=== PATIENT | male | born 1995 | race Caucasian/White ===

== ENCOUNTER 2023-06-22 16:20 | Emergency (ER) | payer SELFPAY ==
--- NOTE | ~2023-06-22 | CT_ITS ---
Non-contrast Head CT History: Head injury Technique: Axial non-contrast imaging of the brain was performed. Dose reduction technique was used on this scan by utilizing automated exposure control and iterative reconstruction technique. The dose -length product (DLP) was 605.33 mGy-cm. Findings: There is no evidence of intracranial hemorrhage, mass lesion, or acute infarct. Brain par enchyma appears normal. The ventricles and subarachnoid spaces are normal in size. The calvarium ap pears normal. The visualized paranasal sinuses and mastoid air cells are clear. Impression: No significant abnormality seen. Reviewed, dictated and finalized at location . Impression: No significant abnormality seen.
[2023-06-22 16:21] VITALS: BP 118/91; PULSE 95; RESP 18; TEMP 36.3; O2SAT 100
--- NOTE | 2023-06-22 17:57 | ED.HEATRA ---
HPI - Head Injury General Chief complaint: Head Injury Stated complaint: hit head 06/20/23 lost consciousness Time Seen by Provider: 06/22/23 17:25 Source: patient Mode of arrival: ambulatory Limitations: no limitations History of Present Illness HPI Narrative: Patient is a 28 y/o male who presents to the ED with c/o HI. 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 He landed initially on his R shoulder and R sided neck, but states his head slammed on the mat. He did lose consciousness for a brief second. He was taken to the locker rooms afterwards. Patient then developed nausea and vomiting. He noted having several episodes of emesis throughout the night. He rested for most of the day Thursday, but reported having intermittent headaches and continued nausea. Today, patient attempted to go back to work and reported having dizziness, right ear tinnitus, headaches. He then prompted here. Patient denies any vision changes, syncope, focal numbness or weakness, abdominal pain. He does not complain of significant neck or shoulder pain. Patient is not on any blood thinners. He has not taken anything for pain. Related Data Allergies Allergy/AdvReac Type Severity Reaction Status Date / Time No Known Allergies Allergy Verified 06/06/19 12:22 Review of Systems Review of Systems: CONSTITUTIONAL: Denies fever, chills, or sweats. EENT: See HPI. Denies visual changes. CARDIOVASCULAR: Denies chest pain. RESPIRATORY: Denies dyspnea. GASTROINTESTINAL: See HPI. MUSCULOSKELETAL: See HPI. NEUROLOGIC: See HPI. All systems reviewed & are unremarkable except as noted in HPI and below [facility] Social History Social History Smoking status: Never smoker Alcohol intake: never Exam Narrative: GENERAL: Well appearing, thin, non-toxic, in no acute distress. HEAD: Normocephalic, atraumatic. EYES: PERRL/EOMI, conjunctivae clear bilaterally. No nystagmus. No periorbital edema. No raccoon eyes. NOSE: Normal, no drainage. EARS: TMS clear, with good light reflex. No erythema or bulging. No hemotympanum. No castañeda sign. NECK: Supple. No adenopathy, no masses. No midline cervical spinal tenderness. Minimal right-sided paraspinal muscle tenderness, extending into upper trapezius region. RESPIRATORY: Airway patent, respirations nonlabored. Clear to auscultation bilaterally, no rales, rhonchi, wheezing. CARDIOVASCULAR: Regular rate and rhythm without murmurs, rubs, or gallops. Radial pulses 2+ and equal bilaterally. MUSCULOSKELETAL: Moves all extremities. Strength/ROM intact without gross deformities. SKIN: Warm, dry, normal color. No rashes. NEURO: A&O X3. Speech clear. Follows commands. CN II-XII intact. Sensation grossly intact. Steady gait. No ataxic movements. Strength 5/5 in upper and lower extremities bilaterally. Equal dobby loom fixer strength bilaterally. No focal deficits. PSYCHIATRIC: Appropriate mood and affect. Normal interaction. Course Vital Signs Vital signs: Vital Signs Temperature 97.4 F L 06/22/23 16:21 Pulse Rate 95 06/22/23 16:21 Respiratory Rate 18 06/22/23 16:21 Blood Pressure 118/91 H 06/22/23 16:21 Pulse Oximetry 100 06/22/23 16:21 Oxygen Delivery Room Air 06/22/23 16:21 Temperature 97.4 F L 06/22/23 16:21 Pulse Rate 95 06/22/23 16:21 Respiratory Rate 18 06/22/23 16:21 Blood Pressure 118/91 H 06/22/23 16:21 Pulse Oximetry 100 06/22/23 16:21 Oxygen Delivery Room Air 06/22/23 16:21 MDM - Head Injury MDM Narrative Medical decision making narrative: Patient presented to ED 2 days status post head injury while performing in a wrestling match. Reporting symptoms consistent with a concussion, nausea, vomiting, dizziness, headaches, tinnitus. Vital stable upon arrival. Patient in no acute distress. He had not taken anything
[2023-06-22] MEDS: ACETAMINOPHEN 500 MG TABLET 1000 MG PO (18:29)
[2023-06-22 19:43] VITALS: BP 114/75; PULSE 84; RESP 16; O2SAT 100
== END 2023-06-22 19:44 | disposition home or self-care (01) ==
PROVIDERS: Emergency Provider Physician Assistant
DX: S06.0X1A Concussion with loss of consciousness of 30 minutes or less, initial encounter (principal); W21.89XA Striking against or struck by other sports equipment, initial encounter; Y93.72 Activity, wrestling
CPT/HCPCS: 70450; 99284; A9270

== ENCOUNTER 2025-01-22 16:39 | Emergency (ER) | payer OTHER, SELFPAY ==
[2025-01-22] VITALS (9 sets, daily range): BP systolic 116–126; BP diastolic 71–88; PULSE 86–116; RESP 16–20; TEMP 36.5–36.6; O2SAT 97–100
--- NOTE | ~2025-01-22 | CT_ITS ---
CLINICAL INDICATION: Abdominal pain and vomiting COMPARISON: None. TECHNIQUE: Multiple contiguous axial images of the abdomen and pelvis were performed following the ad ministration of with 100 mL Omnipaque-350 intravenous contrast The dose-length product (DLP) was 222.85 mGy-cm. Automated exposure control and iterative reconstruction technique were employed. FINDINGS/OBSERVATIONS: Visualized lower thorax: The bilateral lung bases are clear. The heart is of normal size, without pericardial effusion. Liver: Fatty infiltration of the liver which is not enlarged. Gallbladder and biliary system: The gallbladder is only minimally distended, and otherwise unremarkable. Pancreas: The pancreas enhances homogeneously without ductal dilatation. Spleen: The spleen enhances homogeneously and is not enlarged measuring 6 cm in longitudinal dimension. Kidneys: The bilateral kidneys enhance symmetrically without hydronephrosis or renal calculi. Adrenal glands: Unremarkable. Gastrointestinal tract: Trace fecal stasis. Appendix: The air-filled appendix is of normal caliber (axial series, images 132 through 146) Vasculature: Unremarkable. Lymph nodes: No pathologically enlarged or morphologically suspicious lymph nodes within the retroperitoneum or at the root of the mesentery. Pelvic structures: The bladder is minimally distended, with mural thickening and surrounding inflammatory change for whi ch cystitis is suspected. The prostate gland is not enlarged. Body wall and musculoskeletal: No significant degenerative disease within the lower thoracic or lumbosacral spine. IMPRESSION: Findings within the bladder for which cystitis is suspected. No additional acute abnormality is appreciated, as detailed above Reviewed, dictated and finalized at location A. R INSTALLATION HELPER
--- OUTSIDE RECORDS SUMMARY | 2025-01-22 16:41 | XMS_ITS | Referral Summary ---
Author Organization [facility] [employer] Address [address] [place] [address] Care Team Providers Care Roofer Helper Name Role Phone Unavailable Primary Care Provider Unavailabl e Source Comments [facility],non-owned Affiliates and Associated Physician Practices is amultiple site organization consisting of ambulatory clinics and hospital sitesin [place], [place], [place] and [place]. This disclosure is being madepursuant to the Care Everywhere program and may not contain all information available regarding this patient. Last updated 18.[facility] [employer] Allergies No known active allergies Medications * Be aware that medications may not be up to date on this document. Alwaysverify current medications with the patient. Medication Sig Dispensed Refills Start Date End Date Status PEDIATRIC MULTIPLE VITAMINS PO Take 1 Tab by mouth once daily. Active mometasone (ELOCON) 0.1 % ointment Apply to affected area twice a day as needed for up to 2 weeks. Avoid face, underarms, and groin region. 15 g 1 07/24/2011 Active Active Problems Problem Noted Date Diagnosed Date Nonspecific skin eruption 07/25/2011 Overview (07/25/2011): acute onset late May 2011, partially recurrent following a prednisone taper. Consider a primary viral eruption complicated by erythema multiforme vs. contact dermatitis. Aphthous stomatitis 07/25/2011 Overview (07/25/2011): onset age 10-11 with monthly lesions. Social History Tobacco Use Types Packs/Day Years Used Date Smoking Tobacco: Never Assessed Sex and Gender Information Value Date Recorded Sex Assigned at Not on file Gender Identity Not on file Sexual Orientation Not on file Last Filed Vital Signs Vital Sign Reading Time Taken Comments Blood Pressure 100/62 07/24/2011 2:00 PM CDT Pulse - - Temperature - - Respiratory Rate - - Oxygen Saturation - - Inhaled Oxygen Concentration - - Weight 55.6 kg (122 lb 9.2 oz) 07/24/2011 2:00 P M CDT Height 171.4 cm (5' 7.48 ) 07/24/2011 2:00 PM CD T Body Mass Index 18.93 07/24/2011 2:00 PM CDT Plan of Treatment Not on file
--- OUTSIDE RECORDS SUMMARY | 2025-01-22 16:41 | XMS_ITS | Clinical Summary ---
Author Organization [facility] [employer] Address [address] [place] [address] Care Team Providers Care Technical Support Director Name Role Phone Unavailable Primary Care Provider Unavailabl e Source Comments [facility],non-owned Affiliates and Associated Physician Practices is amultiple site organization consisting of ambulatory clinics and hospital sitesin [place], [place], [place] and [place]. This disclosure is being madepursuant to the Care Everywhere program and may not contain all information available regarding this patient. Last updated 18.[facility] [employer] Allergies No known active allergies Medications * [...] (07/25/2011): onset age 10-11 with monthly lesions. Family History Medical History Relation Name Comments Cold Sores Father suicide Sinusitis Maternal Grandfather Cancer Maternal Grandmother breast Cold Sores Maternal Grandmother breast Diabetes Maternal Grandmother breast Clotting Disorder Mother Eczema Mother Sinusitis Mother Strep throat Mother Relation Name Status Comments Father suicide Maternal Grandfather Maternal Grandmother breast Mother Social History Tobacco Use Types Packs/Day Years [...] 07/24/2011 2:00 PM CDT Plan of Treatment Health Maintenance Due Date Last Done Comments HIV SCREENING 2011 HEPATITIS C SCREENING 03/12/2014 DTAP/TDAP/TD VACCINES (1 - Tdap) 2015 HEPATITIS B VACCINE (1 of 3 - 19+ 3-dose series) 2015 COVID-19 VACCINE (2023-2 5 season) 2024 INFLUENZA VACCINE (#1) 2024 DEPRESSION SCREENING 11/30/2024 ZOSTER VACCINE (1 of 2) 2046 HIB VACCINE Aged Out No longer eligi ble based on patient's age to complete this topic HPV VACCINE Aged Out No longer eligi ble based on patient's age to complete this topic MENINGOCOCCAL (Group B) VACCINE Aged Out No longer eligible based on patient's age to complete this topic MENINGOCOCCAL VACCINE Aged Out No matthew mayuri eligible based on patient's age to complete this topic PNEUMOCOCCAL VACCINE Aged Out No long er eligible based on patient's age to complete this topic
--- OUTSIDE RECORDS SUMMARY | 2025-01-22 16:41 | XMS_ITS | Patient Health Summary ---
Author Organization [facility] [employer] Address [address] [place] [address] Care Team Providers Care Food Operations Manager Name Role Phone Unavailable Primary Care Provider Unavailabl e Note from [facility],non-owned Affiliates and Associated Physician Practices is amultiple site organization consisting of ambulatory clinics and hospital sitesin [place], [place], [place] and [place]. This disclosure is being madepursuant to the Care Everywhere program and may not contain all information available regarding this patient. Last updated 18.[facility] Allergies No known active allergies Medications * Be aware that medications may not be up to date on this document. Alwaysverify current medications with the patient. * PEDIATRIC MULTIPLE VITAMINS PO Take 1 Tab by mouth once daily. * mometasone (ELOCON) 0.1 % ointment(Started 07/24/2011) Apply to affected area twice a day as needed for up to 2 weeks. Avoid face, underarms, and groin region. 1 refill left Active Problems Problem Noted Date Diagnosed Date Nonspecific skin eruption 07/25/2011 Aphthous stomatitis 07/25/2011 Social History Tobacco Use Types Packs/Day Years [...]
[2025-01-22] MEDS: SODIUM CHLORIDE 0.9% IV 1,000 ML 999 ML IV CONT (19:32)
--- OUTSIDE RECORDS SUMMARY | 2025-01-22 19:41 | XMS_ITS | Patient Health Summary ---
Author Organization [facility] [employer] Address [address] [place] [address] Care Team Providers Care Force Variation Equipment Tender Name Role Phone Unavailable Primary Care Provider Unavailabl e Note from [facility],non-owned Affiliates and Associated Physician Practices is amultiple site organization consisting of ambulatory clinics and hospital sitesin [place], [place], [place] and [place]. This disclosure is being madepursuant to the Care Everywhere program and may not contain all information available regarding this patient. Last updated 18.[facility] [employer] Allergies No known active allergies Medications * [...]
--- OUTSIDE RECORDS SUMMARY | 2025-01-22 19:41 | XMS_ITS | Referral Summary ---
Author Organization [facility] [employer] Address [address] [place] [address] Care Team Providers Care Supervisor White Sugar Name Role Phone Unavailable Primary Care Provider Unavailabl e Source Comments [facility],non-owned Affiliates and Associated Physician Practices is amultiple site organization consisting of ambulatory clinics and hospital sitesin [place], [place], [place] and [place]. This disclosure is being madepursuant to the Care Everywhere program and may not contain all information available regarding this patient. Last updated 18.[facility] [employer] Allergies No known active allergies Medications * [...]
--- OUTSIDE RECORDS SUMMARY | 2025-01-22 19:41 | XMS_ITS | Clinical Summary ---
Author Organization [facility] [employer] Address [address] [place] [address] Care Team Providers Care Interior Assemblies Developer Prover Name Role Phone Unavailable Primary Care Provider Unavailabl e Source Comments [facility],non-owned Affiliates and Associated Physician Practices is amultiple site organization consisting of ambulatory clinics and hospital sitesin [place], [place], [place] and [place]. This disclosure is being madepursuant to the Care Everywhere program and may not contain all information available regarding this patient. Last updated 18.[facility] [employer] Allergies No known active allergies Medications * [...]
[2025-01-22 19:46] LABS: Basophils Absolute Auto 0.1 K/mm3 (0.0-0.1); Basophils Percent Auto 0.3 % (0.2-1.2); Hematocrit 51.7 % (42.0-52.0); Hemoglobin 19.1 g/dL (14.0-18.0); Immature Granulocyte Absolute 0.08 K/mm3 (0.00-0.031); Immature Granulocyte Percent A 0.6 % (0-0.5); Lymphocytes Absolute Auto 0.82 K/mm3 (0.9-3.2); Lymphocytes Percent Auto 5.7 % (18.3-44.2); Mean Corpuscular HGB Conc 36.9 g/dl (32-36); Mean Corpuscular Hemoglobin 34.2 pg (26-34); Mean Corpuscular Volume 92.7 fl (80-100); Mean Platelet Volume 10.8 fl (7.4-10.4); Monocytes Absolute Auto 1.6 K/mm3 (0.1-0.6); Monocytes Percent Auto 10.8 % (2.6-8.5); Neutrophils Absolute Auto 11.9 K/mm3 (1.3-6.7); Neutrophils Percent Auto 82.6 % (45.5-73.1); Platelet Count Result 204 k/mm3 (150-375); Red Blood Count 5.58 M/mm3 (4.6-6.20); Red Cell Distribution Width 11.8 % (11.5-14.5); White Blood Count 14.4 K/mm3 (4.5-10.0)
--- NOTE | 2025-01-22 19:50 | ED.NAVMDI ---
HPI - Nausea/Vomiting/Diarrhea General Chief complaint: Nausea/Vomiting/Diarrhea Stated complaint: n/v Time Seen by Provider: 01/22/25 19:22 Source: patient Mode of arrival: EMS Limitations: no limitations History of Present Illness HPI Narrative: This is a 29 year old male that presents to the ER for nausea, vomiting, epigastric pain. Ongoing over the last couple of days. Denies fevers. Related Data Allergies Allergy/AdvReac Type Severity Reaction Status Date / Time No Known Allergies Allergy Verified 01/22/25 19:43 Review of Systems Review of Systems: CONSTITUTIONAL: Denies fever GASTROINTESTINAL: Reports abdominal pain, nausea, vomiting All systems reviewed & are unremarkable except as noted in HPI and below [facility] Social History Social History (Updated 01/22/25 @ 19:50 by Jazlyn Canales PA-C) Smoking status: Current every day smoker Tobacco type: e-cigarettes/vaping Alcohol intake: current Substance use: current Substance use type: marijuana Exam Narrative: GENERAL: Well-appearing, well-nourished, and in no acute distress. HEAD: Normocephalic, atraumatic. EYES: EOMI. CHEST: Clear to auscultation. No respiratory distress. No wheezes rales or rhonchi HEART: Regular rate and rhythm. No murmur heard. Normal peripheral pulses. ABDOMEN: Soft, nondistended, normal active bowel sounds. Tender to palpation in the epigastrium, without guarding EXTREMITIES: Normal range of motion. No edema. SKIN: Warm, dry, no rash. NEURO: No focal deficits. Alert and oriented x3. PSYCH: Normal mood and affect Course Course Emergency Course: keyonna was updated on his workup and agrees with plan of care. He reports feeling much better. Tolerating oral intake. Vital Signs Vital signs: Vital Signs Temperature 97.9 F 01/22/25 17:05 Pulse Rate 108 H 01/22/25 17:05 Respiratory Rate 16 01/22/25 17:05 Blood Pressure 116/80 01/22/25 17:05 Pulse Oximetry 100 01/22/25 17:05 Oxygen Delivery Room Air 01/22/25 17:05 Temperature 97.9 F 01/22/25 23:22 Pulse Rate 94 01/22/25 23:22 Respiratory Rate 18 01/22/25 23:22 Blood Pressure 118/71 01/22/25 23:22 Pulse Oximetry 97 01/22/25 23:22 Oxygen Delivery Room Air 01/22/25 17:05 MDM - Nausea/Vomiting/Diarrhea MDM Narrative Medical decision making narrative: Patient presents to the emergency department for epigastric abdominal discomfort, nausea and vomiting. Tachycardic upon arrival, this normalized with IV fluids. CBC with leukocytosis to 14.4. Likely due to vomiting. Also shows some hemoconcentration. Metabolic panel initially with multiple electrolyte derangements. This was repeated with normalization of his potassium and calcium. He does have elevation in his liver enzymes. Likely due to his alcohol use. Urine with 6-10 white blood cells, patient does not have any urinary symptoms. This will be sent for culture. CT abdomen and pelvis shows findings of possible cystitis. Otherwise no acute findings. Patient was updated on his workup and agrees with plan of care. He reports feeling much better. Tolerating oral intake. Will be started on Protonix. He is to follow up with primary provider. He was given warnings to return to the ER Differential Diagnosis Differential diagnosis: Likely food poisoning, gastroenteritis, dehydration and other (alcoholic gastritis, PUD, biliary colic) Lab Data Attestation: I reviewed the patient's lab results. 01/22/25 19:33 01/22/25 23:20 Labs: Lab Results 01/22/25 01/22/25 01/22/25 Range/Units 19:33 20:02 21:33 WBC 14.4 H (4.5-10.0) K/mm3 RBC 5.58 (4.6-6.20) M/mm3 Hgb 19.1 H (14.0-18.0) g/dL Hct 51.7 (42.0-52.0) % MCV 92.7 (80-100) fl MCH 34.2 H (26-34) pg MCHC 36.9 H (32-36) g/dl RDW 11.8 (11.5-14.5) % Plt Count 204 (150-375) k/mm3 MPV 10.8 H (7.4-10.4) fl Immature Gran % (Auto) 0.6 H (0-0.5) % Neut % (Auto) 82.6 H (45.5-73.1) % Lymph % (Auto) 5.7 L (18.3-44.2) % [place] % (Auto) 10.8 H (2.6-8.5) % Eos % (Auto) 0.0 (0-4.4) % Baso % (Auto) 0.3 (0.2-1.2) % Lymph # (Auto) 0.82 L (0.9-3.2) K/mm3 [place] # (Auto) 1.6 H (0.1-0.6) K/mm3 Eos # (Auto) 0.0 (0-0.3) K/mm3 Baso # (Auto) 0.1 (0.0-0.1) K/mm3 Abs Immat Gran (auto) 0.08 H (0.00-0.031) K/mm3 Absolute Neuts (auto) 11.9 H (1.3-6.7) K/mm3 Absolute Nucleated RBC 0.000 (0.0-0.012) K/mm3 Nucleated RBC % 0.0 (0.0-0.2) % Sodium 133 L (137-145) mmol/L Potassium 2.2 L* (3.4-5.0) mmol/L Chloride 105 (98-107) mmol/L Carbon Dioxide 17 L (22-30) mmol/L Anion Gap 11 (4-12) mmol/L BUN 25 H (9-20) mg/dL Creatinine 0.40 L (0.7-1.3) mg/dL Estim Creat Clear Calc 172 ml/min Estimated GFR > 60 (59 - ) Glucose 73 (65-110) mg/dL Calcium 5.8 L* (8.4-10.2) mg/dL Ionized Calcium Jen Pending Magnesium 1.0 L (1.6-2.3) mg/dL Total Bilirubin 1.3 (0.2-1.3) mg/dL AST 53 (17-59) U/L ALT 43 (6-50) U/L Alkaline Phosphatase 68 (38-126) U/L Total Protein 5.0 L (6.3-8.2) g/dL Albumin 2.8 L (3.5-5.1) g/dL Lipase 44 (23-300) U/L PTH Intact 45.5 (14.5-75.2) pg/mL Urine Color Dark yellow (Yellow) Urine Appearance Cloudy H (Clear) Urine pH 5.5 (5.0-9.0) Ur Specific [place] 1.032 (1.001-1.035) Urine Protein 1+ H (Negative) mg/dL Urine Glucose (UA) Negative (Negative) mg/dL Urine Ketones 3+ H (Negative) mg/dL Ur Blood (Man) Negative (Negative) Urine Nitrate Negative (Negative) Urine Bilirubin 2+ H (Negative) Urine Urobilinogen 2.0 H (<2.0) mg/dL Leukocyte Esterase Rfl Trace H (Negative) SYEDA/UL Urine RBC 0-2 (0-2) /hpf Urine WBC 6-10 H (0-3) /hpf Ur Squamous Epith Cells None seen (Few) /hpf Urine Bacteria None seen /hpf Urine Casts 0-2 01/22/25 Range/Units 23:20 WBC (4.5-10.0) K/mm3 RBC (4.6-6.20) M/mm3 Hgb (14.0-18.0) g/dL Hct (42.0-52.0) % MCV (80-100) fl MCH (26-34) pg MCHC (32-36) g/dl RDW (11.5-14.5) % Plt Count (150-375) k/mm3 MPV (7.4-10.4) fl Immature Gran % (Auto) (0-0.5) % Neut % (Auto) (45.5-73.1) % Lymph % (Auto) (18.3-44.2) % [place] % (Auto) (2.6-8.5) % Eos % (Auto) (0-4.4) % Baso % (Auto) (0.2-1.2) % Lymph # (Auto) (0.9-3.2) K/mm3 [place] # (Auto) (0.1-0.6) K/mm3 Eos # (Auto) (0-0.3) K/mm3 Baso # (Auto) (0.0-0.1) K/mm3 Abs Immat Gran (auto) (0.00-0.031) K/mm3 Absolute Neuts (auto) (1.3-6.7) K/mm3 Absolute Nucleated RBC (0.0-0.012) K/mm3 Nucleated RBC % (0.0-0.2) % Sodium 129 L (137-145) mmol/L Potassium 5.0 (3.4-5.0) mmol/L Chloride 87 L (98-107) mmol/L Carbon Dioxide 29 (22-30) mmol/L Anion Gap 13 H (4-12) mmol/L BUN 30 H (9-20) mg/dL Creatinine 0.66 L (0.7-1.3) mg/dL Estim Creat Clear Calc 110 ml/min Estimated GFR > 60 (59 - ) Glucose 95 (65-110) mg/dL Calcium 8.9 (8.4-10.2) mg/dL Ionized Calcium Jen Magnesium (1.6-2.3) mg/dL Total Bilirubin 1.8 H (0.2-1.3) mg/dL AST 77 H (17-59) U/L ALT 66 H (6-50) U/L Alkaline Phosphatase 106 (38-126) U/L Total Protein 8.0 (6.3-8.2) g/dL Albumin 4.4 (3.5-5.1) g/dL Lipase (23-300) U/L PTH Intact (14.5-75.2) pg/mL Urine Color (Yellow) Urine Appearance (Clear) Urine pH (5.0-9.0) Ur Specific [place] (1.001-1.035) Urine Protein (Negative) mg/dL Urine Glucose (UA) (Negative) mg/dL Urine Ketones (Negative) mg/dL Ur Blood (Man) (Negative) Urine Nitrate (Negative) Urine Bilirubin (Negative) Urine Urobilinogen (<2.0) mg/dL Leukocyte Esterase Rfl (Negative) SYEDA/UL Urine RBC (0-2) /hpf Urine WBC (0-3) /hpf Ur Squamous Epith Cells (Few) /hpf Urine Bacteria /hpf Urine Casts Imaging Data Radiologist's impression: ITS Impressions Abdomen/Pelvis CT 01/22/25 21:43 IMPRESSION: Findings within the bladder for which cystitis is suspected. No additional acute abnormality is appreciated, as detailed above Critical Care Time Critical Care Time Critical Care Time: No Discharge Plan Discharge Clinical Impression: Dehydration Gastritis Qualifiers: Gastritis type: alcoholic Chronicity: acute Gastritis bleeding: without bleeding Qualified Code(s): K29.20 - Alcoholic gastritis without bleeding Patient Disposition: Home, Self-Care Condition: Improved Instructions: Gastritis (ED), Dehydration (ED) Additional Instructions: Return to the ER if you experience fever, abdominal pain with nausea and vomiting, you are unable to keep down liquids or solids, blood in the stool, pain or burning with urination, blood in the urine or any other symptoms that are concerning to you Remain well hydrated. Take Protonix daily. Avoid spicy/acidic foods. Avoid eating just before bedtime. Avoid alcohol. Avoid anti-inflammatories Follow up with primary care doctor Patient Language: Icelandic Prescriptions: New pantoprazole 20 mg tablet,delayed release (DR/EC) 20 mg PO HS 28 Days Qty: 28 0RF Follow-up/Referrals: PHYSICIAN,TOBACCO SIEVE OPERATOR [Primary Care Provider] - Christian Polanco MD [Physician] -
[2025-01-22] MEDS: ONDANSETRON INJ 4 MG/2 ML VIAL IV PUSH (20:00)
[2025-01-22] MEDS: PANTOPRAZOLE SODIUM IV 40 MG VIAL IV PUSH (20:02)
[2025-01-22 20:10] LABS: Alanine Aminotransferase 43 U/L (6-50); Albumin Level 2.8 g/dL (3.5-5.1); Alkaline Phosphatase 68 U/L (38-126); Anion Gap 11 mmol/L (4-12); Aspartate Amino Transferase 53 U/L (17-59); Bilirubin,Total 1.3 mg/dL (0.2-1.3); Blood Urea Nitrogen 25 mg/dL (9-20); Calcium 5.8 mg/dL (8.4-10.2); Carbon Dioxide 17 mmol/L (22-30); Chloride 105 mmol/L (98-107); Estimated CRCL calculation 172 ml/min; Estimated Glomerular Filt Rate > 60; Glucose 73 mg/dL (65-110); Lipase 44 U/L (23-300); Potassium 2.2 mmol/L (3.4-5.0); Sodium 133 mmol/L (137-145)
--- NOTE | 2025-01-22 20:14 | ECG_ITS ---
Test Date: 2025-01-22 20:31:16 Measurements Intervals [place] Rate: 98 P: 88 NE: 135 QRS: 99 QRSD: 106 T: 63 QT: 361 QTc: 462 Interpretive Statements SINUS RHYTHM CONSIDER LIMB LEAD REVERSAL RIGHT ATRIAL ENLARGEMENT LEFT ATRIAL ENLARGEMENT MINIMAL Q WAVES- INF/LAT LEADS BASELINE ARTIFACT- I, II, III, AVR, AVL,A VF, V1-V6 BORDERLINE ECG No previous ECG available for comparison Electronically Signed On 01-23-2025 06:37:28 PUBLIC AFFAIRS MANAGER by Tan Luna D.O.
[2025-01-22 20:18] LABS: Add Urine Microscopic? YES; Appearance Urine Cloudy (Clear); Bacteria Urine None Seen /hpf; Bilirubin Urine 2+ (Negative); Blood Urine Negative (Negative); Color Urine Dark Yellow (Yellow); Glucose Urine UA Negative (Negative); Ketones Urine 3+ mg/dL (Negative); Leukocyte Esterase Ur Trace LEU/UL (Negative); Nitrate Urine Negative (Negative); Non Pathogenic Casts 0-2; Protein Urine 1+ mg/dL (Negative); RBC Urine 0-2 /hpf (0-2); Specific Grav Ur 1.032 (1.001-1.035); Squamous Epithelial Cell Urine None Seen /hpf (Few); pH Urine 5.5 (5.0-9.0)
[2025-01-22] MEDS: MAGNESIUM SULF 2 GM/WATER 50ML 2 GM/50 ML BAG IVPB (20:43)
[2025-01-22 21:15] LABS: Parathyroid Intact 45.5 pg/mL (14.5-75.2)
[2025-01-22] MEDS: POTASSIUM CHLORIDE INJ 40 MEQ in SODIUM CHLORIDE 0.9% IV 500 ML 130 MEQ IVPB (21:32)
[2025-01-22] MEDS: POTASSIUM CHLORIDE 20 MEQ ER TABLET 40 MEQ PO (22:42)
[2025-01-22 23:41] LABS: Alanine Aminotransferase 66 U/L (6-50); Albumin Level 4.4 g/dL (3.5-5.1); Alkaline Phosphatase 106 U/L (38-126); Anion Gap 13 mmol/L (4-12); Aspartate Amino Transferase 77 U/L (17-59); Bilirubin,Total 1.8 mg/dL (0.2-1.3); Blood Urea Nitrogen 30 mg/dL (9-20); Calcium 8.9 mg/dL (8.4-10.2); Carbon Dioxide 29 mmol/L (22-30); Chloride 87 mmol/L (98-107); Estimated CRCL calculation 110 ml/min; Estimated Glomerular Filt Rate > 60; Glucose 95 mg/dL (65-110); Sodium 129 mmol/L (137-145)
--- NOTE | 2025-01-23 00:15 | PC.NURSE ---
Per EDP CELY Mcintosh. stop potassium infusion as new Potassium level is 5.0
[2025-01-24 12:34] LABS: Ionized Calcium 4.8 mg/dL (4.7-5.5)
== END 2025-01-23 01:00 | disposition home or self-care (01) ==
PROVIDERS: Student in an Organized Health Care Education/Training Program; Emergency Provider Physician Assistant
DX: E86.0 Dehydration (principal); K29.20 Alcoholic gastritis without bleeding; F17.290 Nicotine dependence, other tobacco product, uncomplicated
CPT/HCPCS: 36415; 74177; 80053; 81001; 82330; 83690; 83735; 83970; 85025; 87086; 93005; 96361; 96365; 96366; 96368; 96375; 99284; A9270; J2405; J2470; J3475; J3480; J7030; J7040; Q9967

== ENCOUNTER 2025-07-05 21:18 | Observation (INO) | payer SELFPAY ==
--- NOTE | ~2025-07-05 | CT_ITS ---
CT of the Abdomen and Pelvis: Indication: Pancreatitis Technique: 2.5 mm axial scans were obtained through the abdomen and pelvis following intravenous adm inistration of 100 cc of Omnipaque 350. Dose reduction technique was used on this scan by utilizing a utomated exposure control and iterative reconstruction technique. The dose-length product (DLP) was 2 08.02 mGy-cm. COMPARISON: 01/22/2025 Findings: Scans through the lung bases are unremarkable. There is diffuse hepatic steatosis. The spleen, pancreas, gallbladder, adrenals and kidneys are withi n normal limits. No evidence of aortic aneurysm. No lymphadenopathy. No bowel obstruction or bowel wall thickening. There is no evidence to suggest acute appendicitis. Images through the pelvis were performed. Urinary bladder unremarkable. No pelvic mass seen. No ascit es. Impression: No acute abnormality. Diffuse hepatic steatosis. Reviewed, dictated and finalized at [facility]. Impression: No acute abnormality. Diffuse hepatic steatosis.
--- NOTE | ~2025-07-05 | US_ITS ---
US abdomen limited INDICATION: Pancreatitis PROCEDURE: Realtime right upper abdominal ultrasound. COMPARISON: No prior studies for comparison. FINDINGS: The pancreas is normal without focal mass or pancreatic ductal dilation. Liver echotexture is increased consistent with fatty infiltration. Liver is enlarged measuring 18 cm. There is normal directional flow in the portal vein. The gallbladder is normal without stones, gallbladder wall thickening or pericholecystic fluid. Comm on bile duct measures 4.5 mm. No sonographic Sanchez's sign. IMPRESSION: 1: Fatty infiltration of the liver with hepatomegaly. Reviewed, dictated and finalized at location A.
[2025-07-05 21:31] VITALS: BP 113/79; PULSE 146; RESP 18; TEMP 36.4; O2SAT 100
--- NOTE | 2025-07-05 21:33 | ECG_ITS ---
Test Date: 2025-07-05 21:41:03 Measurements Intervals Berry Rate: 129 P: 93 OK: 124 QRS: 103 QRSD: 101 T: 48 QT: 306 QTc: 449 Interpretive Statements SINUS TACHYCARDIA CONSIDER ARM LEADS REVERSED INCOMPLETE RIGHT BUNDLE BRANCH BLOCK BORDERLINE R WAVE PROGRESSION, ANTERIOR LEADS MINIMAL Q WAVES- INF/LAT LEADS PEAKED T WAVES- CONSIDER HYPERKALEMIA ABNORMAL ECG Compared to ECG 01/22/2025 20:31:16 HEART RATE HAS INCREASED Electronically Signed On 07-06-2025 06:20:48 CDT by Tan Luna D.O.
[2025-07-05 21:54] LABS: Hematocrit 55.2 % (42.0-52.0); Hemoglobin 20.0 g/dL (14.0-18.0); Mean Corpuscular HGB Conc 36.2 g/dl (32-36); Mean Corpuscular Hemoglobin 35.0 pg (26-34); Mean Corpuscular Volume 96.5 fl (80-100); Platelet Count Result 286 k/mm3 (150-375); Red Blood Count 5.72 M/mm3 (4.6-6.20); White Blood Count 25.3 K/mm3 (4.5-10.0)
[2025-07-05 22:12] LABS: Alanine Aminotransferase 93 U/L (6-50); Albumin Level 5.2 g/dL (3.5-5.1); Alkaline Phosphatase 127 U/L (38-126); Anion Gap 24 mmol/L (4-12); Aspartate Amino Transferase 147 U/L (17-59); Bilirubin,Total 1.5 mg/dL (0.2-1.3); Blood Urea Nitrogen 49 mg/dL (9-20); Calcium 10.4 mg/dL (8.4-10.2); Carbon Dioxide 23 mmol/L (22-30); Chloride 80 mmol/L (98-107); Estimated CRCL calculation 64 ml/min; Estimated Glomerular Filt Rate > 60; Glucose 121 mg/dL (65-110); Lipase 1368 U/L (23-300); Magnesium 2.0 mg/dL (1.6-2.3); Potassium 3.9 mmol/L (3.4-5.0); Sodium 127 mmol/L (137-145); Total Protein 8.9 g/dL (6.3-8.2)
[2025-07-05 22:14] LABS: Band Neutrophils Percent 6 % (0-6); Lymphocytes Absolute Manual 0.25 K/mm3 (1.1-4.5); Lymphocytes Percent Manual 1.0 % (18-44); Monocytes Absolute Manual 0.25 K/mm3 (0.1-0.90); Monocytes Percent Manual 1 % (3-9); Neutrophils Absolute Manual 24.79 K/mm3 (1.3-6.7); Neutrophils Percent Manual 92 % (46-73); Total Cells Counted 100
[2025-07-05 22:15] LABS: Schistocytes None Seen
[2025-07-05] MEDS: ONDANSETRON INJ 4 MG/2 ML VIAL IV PUSH (22:28)
[2025-07-05] MEDS: HYDROmorphone HCL INJ (*CRX) 2 MG/ML VIAL 0.5 MG IV PUSH (22:44)
[2025-07-05] MEDS: SODIUM CHLORIDE 0.9% IV 1,000 ML 999 ML IV CONT (22:44)
[2025-07-05 23:15] VITALS: BP 138/91; PULSE 93; RESP 12; O2SAT 96
[2025-07-05 23:45] VITALS: BP 136/87; PULSE 91; RESP 16; O2SAT 98
[2025-07-06] VITALS (12 sets, daily range): BP systolic 125–151; BP diastolic 69–91; PULSE 65–98; RESP 14–18; TEMP 36.6–37; O2SAT 96–100; BMI 14.8
[2025-07-06 00:23] LABS: Add Urine Microscopic? YES; Appearance Urine Clear (Clear); Glucose Urine UA Negative (Negative); Leukocyte Esterase Ur Trace LEU/UL (Negative); Need Manual Microscopic Reviewed; Nitrate Urine Negative (Negative); Specific Grav Ur 1.029 (1.001-1.035)
--- NOTE | 2025-07-06 00:27 | ED_ITS ---
HPI - Nausea/Vomiting/Diarrhea General Chief complaint: Nausea/Vomiting/Diarrhea Stated complaint: vomiting Time Seen by Provider: 07/05/25 22:04 Source: patient and family Mode of arrival: ambulatory Limitations: no limitations History of Present Illness HPI Narrative: Patient presents with vomiting and epigastric abd pain 36 hours. No fevers. Previously diagnosed with acid reflux when something similar happened, medicine he had been prescribed for that didn't help. Nausea improved after receiving some medications. Drinks alcohol daily/near daily. Has been diagnosed with 1 seizure previously, not on anti seizure meds but notes he will become tremulous if he doesn't drink. Still has his gallbladder. No history of pancreatitis. Related Data Allergies Allergy/AdvReac Type Severity Reaction Status Date / Time No Known Allergies Allergy Verified 07/06/25 05:03 [facility] Family History Family History (Updated 07/06/25 @ 04:56 by Nicky Rao RN) Grandparent Diabetes mellitus Social History Social History Years smoked: 9 Smoking status: Current every day smoker Tobacco type: e-cigarettes/vaping Alcohol intake: current Drinks per week: 70 Substance use: current Substance use type: marijuana Last use: 06/29/2025 Lack of Transportation: No Lack of Food: Never True Current Housing: I Have Housing Concerned About Future Housing: No Difficulty Paying Gas/Electric Bills: No Difficulty Paying for Meds: No Currently Unemployed: No Education: High School Diploma/GED Difficulty w/ Childcare or Family Care: No Spiritual care concerns: No Exam 2 Narrative: GENERAL: Well-appearing, well-nourished, and in no acute distress. HEAD: Normocephalic, atraumatic. EYES: Non injected, non icteric ENT: Nares clear, no rhinorrhea or epistaxis. Gross auditory acuity intact. Tacky mucous membranes NECK: Supple. No meningismus. CHEST: Speaking in full sentences. No respiratory distress. HEART: Tachycardic rate and rhythm. . ABDOMEN: Soft, nondistended. No tenderness to palpation throughout . No rigidity or guarding. Not peritoneal EXTREMITIES: Normal range of motion. No lower extremity edema. SKIN: Warm, dry, no rash. NEURO: No focal deficits. Alert and oriented. Answering questions. Following commands. Normal speech without aphasia or dysarthria. tongue protrudes midline w/o deviation or toño fasciculations PSYCH: Normal mood and affect. Course Vital Signs Vital signs: Vital Signs Temperature 97.5 F L 07/05/25 21:31 Pulse Rate 146 H 07/05/25 21:31 Respiratory Rate 18 07/05/25 21:31 Blood Pressure 113/79 07/05/25 21:31 Pulse Oximetry 100 07/05/25 21:31 Oxygen Delivery Room Air 07/05/25 21:31 Temperature 98.1 F 07/07/25 05:28 Pulse Rate 76 07/07/25 12:00 Respiratory Rate 16 07/07/25 05:28 Blood Pressure 129/65 07/07/25 12:00 Pulse Oximetry 98 07/07/25 08:30 Oxygen Delivery Room Air 07/07/25 08:30 MDM - Nausea/Vomiting/Diarrhea MDM Narrative Medical decision making narrative: Patient presents with epigastric pain and vomiting, 36 hours duration. DDX: Pancreatitis, gastritis, peptic/gastric ulcer disease; GERD; biliary pathology; hepatitis In the emergency department he is afebrile with vital signs notable for marked tachycardia. Analgesia medication, antiemetic, and 1 L IV fluids ordered. Lipase is elevated consistent with pancreatitis. 2 L IV fluids ordered in addition to Reglan and famotidine. While patient's creatinine is technically within normal limits, it does represent a doubling of his previous consistent with an MIR. He has previously had azotemia, worsening today. He also has chronic hyponatremia. Calcium appears elevated but corrects to normal in the setting of elevated albumin. I suspect a degree contraction/hemoconcentration. Transaminitis is worse from previous. Marked leukocytosis. Urinalysis is abnormal but appears to be sterile pyuria with ketonuria which also supports his dehydration. Triglycerides are mildly elevated though not greater than a 1000. Discussed with on-call hospitalist SHAYAN Alexsander who advises patient be in IMU given acidosis. RUQ US has been ordered to be performed though suspect this to be alcohol induced as he drinks daily/near daily. Not currently withdrawing but CIWA protocol ordered given history. Lab Data Attestation: I reviewed the patient's lab results. 07/07/25 04:21 07/07/25 13:05 Labs: Lab Results 07/05/25 07/06/25 Range/Units 21:47 00:01 WBC 25.3 H (4.5-10.0) K/mm3 RBC 5.72 (4.6-6.20) M/mm3 Hgb 20.0 H (14.0-18.0) g/dL Hct 55.2 H (42.0-52.0) % MCV 96.5 (80-100) fl MCH 35.0 H (26-34) pg MCHC 36.2 H (32-36) g/dl RDW 12.5 (11.5-14.5) % Plt Count 286 (150-375) k/mm3 MPV 10.1 (7.4-10.4) fl Immature Gran % (Auto) Not Reportable Neut % (Auto) Not Reportable Lymph % (Auto) Not Reportable [place] % (Auto) Not Reportable Eos % (Auto) Not Reportable Baso % (Auto) Not Reportable Lymph # (Auto) Not Reportable [place] # (Auto) Not Reportable Eos # (Auto) Not Reportable Baso # (Auto) Not Reportable Abs Immat Gran (auto) Not Reportable Absolute Neuts (auto) Not Reportable Absolute Nucleated RBC Not Reportable Total Counted 100 Neutrophils % (Manual) 92 H (46-73) % Band Neutrophils % 6 (0-6) % Lymphocytes % (Manual) 1.0 L (18-44) % Monocytes % (Manual) 1 L (3-9) % Nucleated RBC % Not Reportable Abs Neuts (Manual) 24.79 H (1.3-6.7) K/mm3 Abs Lymphs (Manual) 0.25 L (1.1-4.5) K/mm3 Abs Monocytes (Manual) 0.25 (0.1-0.90) K/mm3 Platelet Estimate Adequate (Adequate) Schistocytes None seen Sodium 127 L (137-145) mmol/L Potassium 3.9 (3.4-5.0) mmol/L Chloride 80 L (98-107) mmol/L Carbon Dioxide 23 (22-30) mmol/L Anion Gap 24 H (4-12) mmol/L BUN 49 H D (9-20) mg/dL Creatinine 1.15 (0.7-1.3) mg/dL Estim Creat Clear Calc 64 ml/min Estimated GFR > 60 (59 - ) Glucose 121 H (65-110) mg/dL Calcium 10.4 H (8.4-10.2) mg/dL Magnesium 2.0 (1.6-2.3) mg/dL Total Bilirubin 1.5 H (0.2-1.3) mg/dL AST 147 H (17-59) U/L ALT 93 H (6-50) U/L Alkaline Phosphatase 127 H (38-126) U/L Total Protein 8.9 H (6.3-8.2) g/dL Albumin 5.2 H (3.5-5.1) g/dL Triglycerides 300 H (<150) mg/dL Lipase 1368 H (23-300) U/L Urine Color Dark yellow (Yellow) Urine Appearance Clear (Clear) Urine pH 6.0 (5.0-9.0) Ur Specific [place] 1.029 (1.001-1.035) Urine Protein 2+ H (Negative) mg/dL Urine Glucose (UA) Negative (Negative) mg/dL Urine Ketones 3+ H (Negative) mg/dL Ur Blood (Man) Negative (Negative) Urine Nitrate Negative (Negative) Urine Bilirubin 2+ H (Negative) Urine Urobilinogen 1.0 (<2.0) mg/dL Add Ur Microanalysis Reviewed Leukocyte Esterase Rfl Trace H (Negative) SYEDA/UL Urine RBC 3-5 H (0-2) /hpf Urine WBC 6-10 H (0-3) /hpf Ur Squamous Epith Cells Occasional (Few) /hpf Urine Bacteria None seen /hpf Urine Casts 11-20 Hyaline Casts Present (None) /lpf Imaging Data Radiologist's impression: CT Abd Pelvis w/ contrast STat Rad: Question minimal inflammatory stranding surrounding the tail of the pancreas which could be seen with pancreatitis in the appropriate clinical setting. No hemorrhage, necrosis or organized peripancreatic fluid collection. Marked fatty infiltrate of the liver. The remaining solid organs are within normal limits. No bowel obstruction. Normal appendix. No fracture. No incidental findings. ECG Data EKG #1: Attestation: I personally reviewed and interpreted this ECG as follows: ECG completion date: 07/06/25 ECG completion time: 21:41 Interpretation: Sinus tachycardia at a rate of 129 beats per minute. KS interval 124. QRS 101. QT/QTC 306/449. No T-wave inversions. Discharge Plan Discharge Clinical Impression: Pancreatitis, MIR (acute kidney injury), Hyponatremia, Transaminitis, Leukocytosis, Dehydration with hyponatremia, Fatty infiltration of liver, Consumes alcohol Patient Disposition: Still a Patient Condition: Stable Time of Disposition: 03:52
[2025-07-06] MEDS: SODIUM CHLORIDE 0.9% IV 1,000 ML 999 ML IV CONT ×2 (00:54→04:27)
[2025-07-06] MEDS: METOCLOPRAMIDE HCL INJ 10 MG/2 ML VIAL IV PUSH (00:56)
[2025-07-06] MEDS: FAMOTIDINE 20 MG/2 ML VIAL IV PUSH (00:56)
[2025-07-06 00:58] LABS: Triglycerides 300 mg/dL (<150)
[2025-07-06] MEDS: LACTATED RINGERS 1,000 ML 100 ML IV CONT ×2 (04:55→16:21)
--- NOTE | 2025-07-06 04:55 | ADMGEN ---
This patient, Jorge Ortiz, was admitted to IMU Room 212-01 at 0445. Patient/family oriented to hospital policies and general routines including ID bracelet, bed and alarms, visiting hours, pain management, procedures, bathroom and other care routines, personal items, smoking policy, room service/diet, and visiting hours. Information on how to activate the Rapid Response Team has been discussed. Patient/Family are encouraged to report perceived risks to care and to ask questions if they do not understand what they are told or what they should do.
--- NOTE | 2025-07-06 04:56 | P.HP_ITS ---
H&P: HPI History of Present Illness Date/Time: 07/06/25 04:56 Chief Complaint: Abdominal pain, cyclic vomiting Narrative: This is a 30 year old male patient admitted for pancreatitis with alcoholic ketosis, cyclic vomiting, significant dehydration with hyponatremia and MIR. He presents with with a 3-day history of persistent, progressive vomiting that began on Thursday (patient initially stated Thursday, then corrected to Thursday). Episodes start slowly (single emesis, transient relief) and escalate to near- continuous vomiting ?every two seconds,? occurring approximately once every two months. He reports poor oral intake, significant dehydration, weight loss, chronic loss of appetite, and sleep deprivation (three days) due to vomiting. Pertinent history ? No prior hospitalizations for pancreatitis; unfamiliar with the diagnosis. ? Daily alcohol intake ? ? of a fifth of hard liquor; states intake has been stable or slightly decreasing. ? Occasional cannabis use (small ?pinch-hit? or edibles when with coworkers); patient reports cannabis causes anxiety, so he doesn't use it often. He recently consumed edibles purchased in [place] with his girlfriend over the weekend. He has not correlated timing of cannabis use with vomiting episodes. ? Denies stimulant use (Adderall, meth). ? No diabetes or childhood diabetes. ? Medications: none taken regularly; intermittent OTC acid-reducing agent (not brought to hospital, but ordered for IV administration). ? Pre-ED treatment: received IV fluids and anti-emetic in ED triage, which relieved nausea and caused mild drowsiness. ? Denies fever, chills, shortness of breath. Reports inability to pass flatus or have bowel movement over past 1?2 days. No recent travel except brief trip to [place] (edible cannabis). Risk factors / exposures ? Daily alcohol use, intermittent cannabis. ? Poor nutrition, repetitive dehydration. Review of Systems Review of Systems: All systems reviewed & are unremarkable except as noted in HPI and below PMFSH Family History Family History (Updated 07/06/25 @ 04:56 by Nicky Rao RN) Grandparent Diabetes mellitus Social History Social History Years smoked: 9 Smoking status: Current every day smoker Tobacco type: e-cigarettes/vaping Alcohol intake: current Drinks per week: 70 Substance use: current Substance use type: marijuana Last use: 06/29/2025 Lack of Transportation: No Lack of Food: Never True Current Housing: I Have Housing Concerned About Future Housing: No Difficulty Paying Gas/Electric Bills: No Difficulty Paying for Meds: No Currently Unemployed: No Education: High School Diploma/GED Difficulty w/ Childcare or Family Care: No Spiritual care concerns: No Meds Home Medications and Allergies Home Medications ?Medication ?Instructions ?Recorded ?Confirmed ?Type No Home Medications 07/06/25 07/06/25 History Allergies Allergy/AdvReac Type Severity Reaction Status Date / Time No Known Allergies Allergy Verified 07/06/25 05:03 Vital Signs Vital Signs - 24 hr 07/05/25 21:31 07/05/25 23:15 07/05/25 23:45 Temperature 36.4 C L Pulse Rate 146 H 93 91 Respiratory Rate 18 12 16 Blood Pressure 113/79 138/91 H 136/87 Pulse Oximetry 100 96 98 Oxygen Delivery Room Air 07/06/25 01:00 07/06/25 02:00 07/06/25 03:00 Temperature Pulse Rate 88 93 89 Respiratory Rate 15 14 16 Blood Pressure 151/91 H 132/79 144/86 H Pulse Oximetry 100 98 97 Oxygen Delivery Exam Narrative: GENERAL: Uncomfortable appearing, moderately ill-appearing HEAD: Normocephalic, atraumatic. ENT:? Mucous membranes moist. CHEST: Clear to auscultation.? No respiratory distress. HEART: Regular rate and rhythm. ? Normal peripheral pulses. ABDOMEN: Soft, epigastric tenderness no peritoneal signs EXTREMITIES: Normal range of motion. No peripheral edema. SKIN: Warm dry normal color NEURO: Alert and oriented x3. Fine tremors present H&P: Results Labs Labs: Short CBC 07/05/25 Range/Units 21:47 WBC 25.3 H (4.5-10.0) K/mm3 Hgb 20.0 H (14.0-18.0) g/dL Hct 55.2 H (42.0-52.0) % Plt Count 286 (150-375) k/mm3 BMP 07/05/25 21:47 Sodium 127 L Potassium 3.9 Chloride 80 L Carbon Dioxide 23 BUN 49 H D Creatinine 1.15 Glucose 121 H Calcium 10.4 H Liver Function 07/05/25 Range/Units 21:47 Total Bilirubin 1.5 H (0.2-1.3) mg/dL AST 147 H (17-59) U/L ALT 93 H (6-50) U/L Alkaline Phosphatase 127 H (38-126) U/L Albumin 5.2 H (3.5-5.1) g/dL Urine 07/06/25 Range/Units 00:01 Urine Color Dark yellow (Yellow) Urine Appearance Clear (Clear) Urine pH 6.0 (5.0-9.0) Ur Specific [place] 1.029 (1.001-1.035) Urine Protein 2+ H (Negative) mg/dL Urine Glucose (UA) Negative (Negative) mg/dL Pulse Oximetry SpO2 results: 96-100% on room air Attestation: I personally reviewed and interpreted this pulse oximetry as follows: Interpretation: No need for supplemental oxygenation at this time ECG Attestation: I personally reviewed and interpreted this ECG as follows: ECG completion date: 07/05/25 ECG completion time: 21:41 Prior ECG tracings: available for review Interpretation: Sinus tachycardia rate of 129 NE interval 124 QRS duration 101 QTC 449 QRS axis 103 right axis deviation appearance of LVH by voltage criteria Imaging CT scan - abdomen: My impression: My independent interpretation of CT scan abdomen pelvis with IV contrast shows distended gallbladder, fluid-filled distended stomach without signs of bowel obstruction, fullness of the pancreas with possible cyst, bladder wall thicke serena potentially due to cystitis. Radiologist's impression: CT of the Abdomen and Pelvis: Indication: Pancreatitis Technique: 2.5 mm axial scans were obtained through the abdomen and pelvis following intravenous administration of 100 cc of Omnipaque 350. Dose reduction technique was used on this scan by utilizing automated exposure control and iterative reconstruction technique. The dose-length product (DLP) was 208.02 mGy-cm. COMPARISON: 01/22/2025 Findings: Scans through the lung bases are unremarkable. There is diffuse hepatic steatosis. The spleen, pancreas, gallbladder, adrenals and kidneys are within normal limits. No evidence of aortic aneurysm. No lymphadenopathy. No bowel obstruction or bowel wall thickening. There is no evidence to suggest acute appendicitis. Images through the pelvis were performed. Urinary bladder unremarkable. No pelvic mass seen. No ascites. Impression: No acute abnormality. Diffuse hepatic steatosis. Reviewed, dictated and finalized at location . Assessment and Plan Assessment and plan (1) Pancreatitis: Code(s): K85.90 - Acute pancreatitis without necrosis or infection, unspecified Status: Acute Assessment and Plan: -Abdominal/epigastric pain with persistent nausea and vomiting for 36+ hours -Elevated lipase 1368 with triglycerides of 300 -Mild transaminitis with distended gallbladder and fatty infiltration of liver -Chronic alcohol use and marijuana use -Inflammation noted around the pancreas on CT examination, awaiting final read -NPO except meds and ice chips -Received 3 L of IV fluids in the emergency department, LR at 100 mL/hr to follow (2) Alcoholic ketosis: Code(s): E88.89 - Other specified metabolic disorders Status: Acute Assessment and Plan: -Ketones 3+ in the urine without urine glucose, anion gap 24 -Ordered lactic acid, VBG, repeat CMP, beta hydroxybutyrate, hemoglobin A1c -Hemoconcentration and protein concentration present on labs, dehydration present as well (3) Dehydration with hyponatremia: Code(s): E86.0 - Dehydration; E87.1 - Hypo-osmolality and hyponatremia Status: Acute Assessment and Plan: -Na 127 and chloride 80 on ER labs -Received 3000 mL Normal Saline in ER -LR at 100 mL/hr to follow for pancreatitis (4) Leukocytosis: Code(s): D72.829 - Elevated white blood cell count, unspecified Status: Acute Assessment and Plan: -WBC 25.3 in ER -Possible cystitis with contaminated urine collection -Lactic acid and blood cultures pending -Will give IV Rocephin out of caution (5) Abnormal urinalysis: Code(s): R82.90 - Unspecified abnormal findings in urine Status: Acute Assessment and Plan: -See leukocytosis above (6) Transaminitis: Code(s): R74.01 - Elevation of levels of liver transaminase levels Status: Acute Assessment and Plan: -See pancreatitis above (7) High triglycerides: Code(s): E78.1 - Pure hyperglyceridemia Status: Acute Assessment and Plan: -See pancreatitis above (8) MIR (acute kidney injury): Code(s): N17.9 - Acute kidney failure, unspecified Status: Acute Assessment and Plan: -Cr 1.15 and BUN 49 in ER -Cr Clearance 64, previously 172 in Dec 2024 -Accompanied weight loss and low BMI (9) Severe protein-calorie malnutrition: Code(s): E43 - Unspecified severe protein-calorie malnutrition Status: Acute Assessment and Plan: -Dietary consulted -BMI down to 14.9 (measured after IV fluids given) and weight 45.7kg (10) Cyclical vomiting: Code(s): R11.15 - Cyclical vomiting syndrome unrelated to migraine Status: Acute Assessment and Plan: -Potentially related to moments of heavier episodic cannabis use Plan -Admit to IMU -CIWA Q4H with PRN lorazepam -IV fluids, attempt slowly to advance diet as tolerated -Pain medication ordered -Repeat labs pending Quality VTE Prophylaxis VTE prophylaxis: mechanical ordered Due to a high probability of clinically significant, life threatening deterioration, the patient required my highest level of preparedness to interven e emergently and I personally spent this critical care time directly and personally managing the patient. This critical care time included obtaining a history; examining the patient; pulse oximetry; ordering and review of studies; arranging urgent treatment with development of a management plan; evaluation of patient's response to treatment; frequent reassessment; and discussions with other providers. It was exclusive of separately billable procedures and treating other patients and teaching time. Please see Assessment and Plan section and the rest of the note for further information on patient assessment and treatment. Critical Care time: 42 minutes Hospitalist MIPS Advance Care Plan I have confirmed that the patient's Advanced Care Plan is present, code status is documented, or surrogate decision maker is listed in patient medical record.: Yes Medication Reconciliation I have utilized all available resources to obtain, update and review the patients current medications (includes all prescriptions, OTC, herbals, cannabis, and nutritional supplements).: Yes
[2025-07-06 05:28] LABS: Fractional Inspired Oxygen 21 %; HCO3 VBG 25.2 mEq/l (24.0-30.0); PCO2 VBG 41.2 mmHg (42.0-48.0); PO2 VBG 36.5 mmHg (35.0-45.0)
[2025-07-06 05:37] LABS: Hematocrit 50.7 % (42.0-52.0); Hemoglobin 17.7 g/dL (14.0-18.0); Immature Granulocyte Percent A 0.8 % (0-0.5); Lymphocytes Absolute Auto 0.48 K/mm3 (0.9-3.2); Mean Corpuscular HGB Conc 34.9 g/dl (32-36); Mean Corpuscular Hemoglobin 35.3 pg (26-34); Mean Corpuscular Volume 101.0 fl (80-100); Nucleated Red Blood Cells Absolute Auto 0.000 K/mm3 (0.0-0.012); Nucleated Red Blood Cells Perc 0.0 % (0.0-0.2); Platelet Count Result 221 k/mm3 (150-375); Red Blood Count 5.02 M/mm3 (4.6-6.20); White Blood Count 19.1 K/mm3 (4.5-10.0)
[2025-07-06 05:40] LABS: pH VBG 7.405 (7.300-7.400)
[2025-07-06 05:46] LABS: Hemoglobin A1C 5.0 % (<5.7)
[2025-07-06 05:54] LABS: Beta-Hydroxybutyrate/Acetoace. 3.74 mmol/L (0.02-0.27)
[2025-07-06 05:58] LABS: Alanine Aminotransferase 75 U/L (6-50); Albumin Level 4.4 g/dL (3.5-5.1); Alkaline Phosphatase 95 U/L (38-126); Anion Gap 13 mmol/L (4-12); Aspartate Amino Transferase 107 U/L (17-59); Bilirubin,Total 1.5 mg/dL (0.2-1.3); Blood Urea Nitrogen 35 mg/dL (9-20); Calcium 9.0 mg/dL (8.4-10.2); Carbon Dioxide 24 mmol/L (22-30); Chloride 90 mmol/L (98-107); Estimated CRCL calculation 77 ml/min; Estimated Glomerular Filt Rate > 60; Glucose 94 mg/dL (65-110); Lipase 1122 U/L (23-300); Magnesium 2.1 mg/dL (1.6-2.3); Potassium 3.5 mmol/L (3.4-5.0); Sodium 127 mmol/L (137-145); Total Protein 7.6 g/dL (6.3-8.2)
[2025-07-06] MEDS: cefTRIAXone 1 GM in SODIUM CHLORIDE 0.9% IV 50 ML 100 ML IVPB (06:07)
[2025-07-06 06:13] LABS: Procalcitonin 0.5 ng/mL
--- NOTE | 2025-07-06 08:12 | P.PNIM_ITS ---
Progress Note: A&P Assessment and Plan (1) Pancreatitis: Code(s): K85.90 - Acute pancreatitis without necrosis or infection, unspecified Status: Acute Assessment and Plan: -Abdominal/epigastric pain with persistent nausea and vomiting for 36+ hours - CT A/P no signs of pancreatitis, but pain consistent with pancreatitis and lipase elevated. -total bili 1.5, AST 107, ALT 75 -Elevated lipase 1368 with triglycerides of 300 -Chronic alcohol use and marijuana use -CLD, advance to low fat diet as tolerated -Received 3 L of IV fluids in the emergency department, LR at 100 mL/hr to follow (2) Alcoholic ketosis: Code(s): E88.89 - Other specified metabolic disorders Status: Acute Assessment and Plan: -Ketones 3+ in the urine without urine glucose, anion gap 24 - LA WNL, VBG with pH 7.4, BHB 3.74, -Hemoconcentration and protein concentration present on labs, dehydration present as well -labs improving with IV fluids (3) Dehydration with hyponatremia: Code(s): E86.0 - Dehydration; E87.1 - Hypo-osmolality and hyponatremia Status: Acute Assessment and Plan: -Na 127 and chloride 80 on ER labs -Received 3000 mL Normal Saline in ER -LR at 100 mL/hr to follow for pancreatitis - monitor BMP (4) Leukocytosis: Code(s): D72.829 - Elevated white blood cell count, unspecified Status: Acute Assessment and Plan: -WBC 25.3 in ER -UA with trace LE, 6-10 WBC. Denies urinary symptoms. Doubt cystitis. -Lactic acid WNL - blood cultures pending -received IV Rocephin x1 dose. Will hold on further antibiotics due to low suspicion for infectious process. WBC improving this a.m., patient remains afebrile. (5) Alcohol abuse: Code(s): F10.10 - Alcohol abuse, uncomplicated Status: Acute Assessment and Plan: - patient drinks 1/2 of a 1/5 of liquor daily - denies history of severe withdrawal - monitor on CIWA, PRN Ativan - thiamine, MTV, folic acid (6) Abnormal urinalysis: Code(s): R82.90 - Unspecified abnormal findings in urine Status: Acute Assessment and Plan: -See leukocytosis above (7) Transaminitis: Code(s): R74.01 - Elevation of levels of liver transaminase levels Status: Acute Assessment and Plan: -See pancreatitis above (8) High triglycerides: Code(s): E78.1 - Pure hyperglyceridemia Status: Acute Assessment and Plan: -See pancreatitis above (9) MIR (acute kidney injury): Code(s): N17.9 - Acute kidney failure, unspecified Status: Acute Assessment and Plan: -Cr 1.15 and BUN 49 in ER -Cr Clearance 64, previously 172 in Dec 2024 -Accompanied weight loss and low BMI - Cr improved this AM with IV fluids (10) Severe protein-calorie malnutrition: Code(s): E43 - Unspecified severe protein-calorie malnutrition Status: Acute Assessment and Plan: -Dietary consulted -BMI down to 14.9 (measured after IV fluids given) and weight 45.7kg (11) Cyclical vomiting: Code(s): R11.15 - Cyclical vomiting syndrome unrelated to migraine Status: Acute Assessment and Plan: -Potentially related to moments of heavier episodic cannabis use vs. alcohol use - ongoing issue for quite sometime. Recommend cessation of alcohol and cannabis and possible outpatient GI consultation. Subjective Date/time seen: 07/06/25 08:12 Interval history: Patient seen and examined at bedside. Doing better this AM, hasn't vomited since yesterday. Asking to advance diet. Pain improved. Review of Systems Review of Systems: All systems reviewed & are unremarkable except as noted in HPI and below Exam Narrative: General: NAD Eyes: EOMI ENT: neck supple Cardiovascular: Regular rate and rhythm Respiratory: Clear to auscultation, respirations even and unlabored on RA Gastrointestinal: Soft, mild epigastric tenderness Genitourinary: no suprapubic tenderness Musculoskeletal: No edema Skin: warm, dry Neuro: Alert. Psych: Mood appropriate Objective Data Vital Signs Vital Signs: Vital Signs - 24 hr 07/05/25 21:31 07/05/25 23:15 07/05/25 23:45 Temperature 97.5 F L Pulse Rate 146 H 93 91 Respiratory Rate 18 12 16 Blood Pressure 113/79 138/91 H 136/87 Pulse Oximetry 100 96 98 Oxygen Delivery Room Air 07/06/25 01:00 07/06/25 02:00 07/06/25 03:00 Temperature Pulse Rate 88 93 89 Respiratory Rate 15 14 16 Blood Pressure 151/91 H 132/79 144/86 H Pulse Oximetry 100 98 97 Oxygen Delivery 07/06/25 06:00 07/06/25 08:04 Temperature 98.5 F Pulse Rate 98 96 Respiratory Rate 18 Blood Pressure 141/78 H Pulse Oximetry 96 Oxygen Delivery Intake/Output Intake/Output: Intake & Output 07/03/25 07/04/25 07/05/25 07/06/25 23:59 23:59 23:59 23:59 Intake Total 1000 1050 Balance 1000 1050 Meds/Results Medications: Active Medications Generic Name Dose Route Start Last Admin Trade Name Freq PRN Reason Stop Dose Admin Acetaminophen 650 mg 07/06/25 03:50 Acetaminophen 325 Mg Tablet PO Q4H PRN Mild Pain (1-3) or Fever Dextrose 12.5 gm 07/06/25 04:41 Dextrose 50% 25 Gm/50 Ml Syringe IV PUSH PRN PRN Hypoglycemia Protocol Glucagon 1 mg 07/06/25 04:41 Glucagon For Inj 1 Mg Vial IM PRN PRN Hypoglycemia Protocol Glucose 15 gm 07/06/25 04:41 Glucose Oral Gel 15 Gm Of Glucse In 37.5 Gm Tube PO PRN PRN Hypoglycemia Protocol Lactated Ringer's 1,000 mls @ 100 mls/hr 07/06/25 04:40 07/06/25 04:55 Lr - Lactated Ringers Iv IV CONT 100 mls/hr .Q10H ANDREA Administration Dextrose 1,000 mls @ 100 mls/hr 07/06/25 04:41 Dextrose 5% 1,000 Ml IVPB PRN PRN Hypoglycemia Protocol Ceftriaxone Sodium 1 gm/ 50 mls @ 100 mls/hr 07/06/25 06:00 07/06/25 06:37 Sodium Chloride IVPB Infused Q24H ANDREA Infusion Insulin Aspart 2 - 5 units 07/06/25 08:00 07/06/25 08:08 Insulin Aspart (*Bkc) 100 Units/Ml SUB-Q Not Given TIDWM ANDREA Protocol Lorazepam 1 mg 07/06/25 04:38 Lorazepam (*Crx) 1 Mg Tablet PO Q4H PRN Anxiety/CIWA 8-15 Lorazepam 2 mg 07/06/25 04:38 Lorazepam (*Crx) 1 Mg Tablet PO Q4H PRN CIWA 16 or higher Metoclopramide HCl 10 mg 07/06/25 06:38 Metoclopramide Hcl Inj 10 Mg/2 Ml Vial IV PUSH Q6HR PRN nausea/vomiting Morphine Sulfate 2 mg 07/06/25 03:50 Morphine Sulfate (*Crx) 2 Mg/Ml Inj IV PUSH Q2H PRN Pain Rated 7-10 Ondansetron HCl 4 mg 07/06/25 03:50 Ondansetron Inj 4 Mg/2 Ml Vial IV PUSH Q4H PRN Nausea Pantoprazole Sodium 40 mg 07/06/25 09:00 Pantoprazole Sodium Iv 40 Mg Vial IV PUSH Q12HR COUNT INCLUDES THE [facility] Radiology Results: ITS Impressions Abdomen/Pelvis CT 07/06/25 05:29 Impression: No acute abnormality. Diffuse hepatic steatosis. Labs Labs: Laboratory Results - last 24 hr 07/05/25 07/06/25 07/06/25 21:47 00:01 05:21 WBC 25.3 H 19.1 H RBC 5.72 5.02 Hgb 20.0 H 17.7 Hct 55.2 H 50.7 MCV 96.5 101.0 H MCH 35.0 H 35.3 H MCHC 36.2 H 34.9 RDW 12.5 12.7 Plt Count 286 221 MPV 10.1 10.5 H Immature Gran % (Auto) Not Reportable 0.8 H Neut % (Auto) Not Reportable 87.9 H Lymph % (Auto) Not Reportable 2.5 L [place] % (Auto) Not Reportable 8.7 H Eos % (Auto) Not Reportable 0.0 Baso % (Auto) Not Reportable 0.1 L Lymph # (Auto) Not Reportable 0.48 L [place] # (Auto) Not Reportable 1.7 H Eos # (Auto) Not Reportable 0.0 Baso # (Auto) Not Reportable 0.0 Abs Immat Gran (auto) Not Reportable 0.15 H Absolute Neuts (auto) Not Reportable 16.8 H Absolute Nucleated RBC Not Reportable 0.000 Total Counted 100 Neutrophils % (Manual) 92 H Band Neutrophils % 6 Lymphocytes % (Manual) 1.0 L Monocytes % (Manual) 1 L Nucleated RBC % Not Reportable 0.0 Abs Neuts (Manual) 24.79 H Abs Lymphs (Manual) 0.25 L Abs Monocytes (Manual) 0.25 Platelet Estimate Adequate Schistocytes None seen VBG pH VBG pCO2 VBG pO2 VBG HCO3 O2 Delivery Device O2 Liters/Min FiO2 Sodium 127 L 127 L Potassium 3.9 3.5 Chloride 80 L 90 L Carbon Dioxide 23 24 Anion Gap 24 H 13 H BUN 49 H D 35 H D Creatinine 1.15 0.80 Estim Creat Clear Calc 64 77 Estimated GFR > 60 > 60 Glucose 121 H 94 POC Capillary Glucose Hemoglobin A1c 5.0 Lactic Acid 1.2 Calcium 10.4 H 9.0 Magnesium 2.0 2.1 Total Bilirubin 1.5 H 1.5 H AST 147 H 107 H ALT 93 H 75 H Alkaline Phosphatase 127 H 95 Total Protein 8.9 H 7.6 Albumin 5.2 H 4.4 Triglycerides 300 H Lipase 1368 H 1122 H Beta-Hydroxybutyrate/Acetoacetate 3.74 H Procalcitonin 0.5 Urine Color Dark yellow Urine Appearance Clear Urine pH 6.0 Ur Specific [place] 1.029 Urine Protein 2+ H Urine Glucose (UA) Negative Urine Ketones 3+ H Ur Blood (Man) Negative Urine Nitrate Negative Urine Bilirubin 2+ H Urine Urobilinogen 1.0 Add Ur Microanalysis Reviewed Leukocyte Esterase Rfl Trace H Urine RBC 3-5 H Urine WBC 6-10 H Ur Squamous Epith Cells Occasional Urine Bacteria None seen Urine Casts 11-20 Hyaline Casts Present 07/06/25 07/06/25 05:22 07:35 WBC RBC Hgb Hct MCV MCH MCHC RDW Plt Count MPV Immature Gran % (Auto) Neut % (Auto) Lymph % (Auto) [place] % (Auto) Eos % (Auto) Baso % (Auto) Lymph # (Auto) [place] # (Auto) Eos # (Auto) Baso # (Auto) Abs Immat Gran (auto) Absolute Neuts (auto) Absolute Nucleated RBC Total Counted Neutrophils % (Manual) Band Neutrophils % Lymphocytes % (Manual) Monocytes % (Manual) Nucleated RBC % Abs Neuts (Manual) Abs Lymphs (Manual) Abs Monocytes (Manual) Platelet Estimate Schistocytes VBG pH 7.405 H* VBG pCO2 41.2 L VBG pO2 36.5 VBG HCO3 25.2 O2 Delivery Device Not Reportable O2 Liters/Min Not Reportable FiO2 21 Sodium Potassium Chloride Carbon Dioxide Anion Gap BUN Creatinine Estim Creat Clear Calc Estimated GFR Glucose POC Capillary Glucose 106 H Hemoglobin A1c Lactic Acid Calcium Magnesium Total Bilirubin AST ALT Alkaline Phosphatase Total Protein Albumin Triglycerides Lipase Beta-Hydroxybutyrate/Acetoacetate Procalcitonin Urine Color Urine Appearance Urine pH Ur Specific [place] Urine Protein Urine Glucose (UA) Urine Ketones Ur Blood (Man) Urine Nitrate Urine Bilirubin Urine Urobilinogen Add Ur Microanalysis Leukocyte Esterase Rfl Urine RBC Urine WBC Ur Squamous Epith Cells Urine Bacteria Urine Casts Hyaline Casts Quality VTE Prophylaxis VTE prophylaxis: mechanical ordered
[2025-07-06] MEDS: PANTOPRAZOLE SODIUM IV 40 MG VIAL IV PUSH ×2 (09:27→20:56)
--- NOTE | 2025-07-06 10:47 | PC.NURSE ---
This patient, Jorge Ortiz, was transferred to [ [id number]] on 07/06/25 at 1048. Personal belongings sent with patient. Report given to [ Keo]. Appropriate documentation sent with patient. Family at bedside. Vape pen sent with patient to unit- given to RN
[2025-07-06] MEDS: CALCIUM CARBONATE (TUMS) 500 MG (200 MG ELEMENTAL) PO (13:15)
[2025-07-07] VITALS (7 sets, daily range): BP systolic 129; BP diastolic 65; PULSE 69–116; RESP 16; TEMP 36.7; O2SAT 98; BMI 18.2
[2025-07-07] MEDS: LACTATED RINGERS 1,000 ML 100 ML IV CONT (02:15)
[2025-07-07 05:06] LABS: Hematocrit 42.4 % (42.0-52.0); Hemoglobin 14.9 g/dL (14.0-18.0); Immature Granulocyte Percent A 0.6 % (0-0.5); Lymphocytes Absolute Auto 0.96 K/mm3 (0.9-3.2); Mean Corpuscular HGB Conc 35.1 g/dl (32-36); Mean Corpuscular Hemoglobin 35.1 pg (26-34); Mean Corpuscular Volume 100.0 fl (80-100); Nucleated Red Blood Cells Absolute Auto 0.000 K/mm3 (0.0-0.012); Nucleated Red Blood Cells Perc 0.0 % (0.0-0.2); Platelet Count Result 145 k/mm3 (150-375); Red Blood Count 4.24 M/mm3 (4.6-6.20); White Blood Count 12.3 K/mm3 (4.5-10.0)
[2025-07-07 05:23] LABS: Alanine Aminotransferase 49 U/L (6-50); Albumin Level 3.4 g/dL (3.5-5.1); Alkaline Phosphatase 73 U/L (38-126); Anion Gap 8 mmol/L (4-12); Aspartate Amino Transferase 67 U/L (17-59); Bilirubin,Total 2.0 mg/dL (0.2-1.3); Blood Urea Nitrogen 10 mg/dL (9-20); Calcium 9.1 mg/dL (8.4-10.2); Carbon Dioxide 30 mmol/L (22-30); Chloride 91 mmol/L (98-107); Cholesterol 127 mg/dL (0-200); Estimated CRCL calculation 141 ml/min; Estimated Glomerular Filt Rate > 60; Glucose 90 mg/dL (65-110); HDL Direct 47 mg/dL; Lipase 983 U/L (23-300); Magnesium 1.8 mg/dL (1.6-2.3); Potassium 2.8 mmol/L (3.4-5.0); Sodium 129 mmol/L (137-145); Total Protein 5.9 g/dL (6.3-8.2); Triglycerides 133 mg/dL (<150)
[2025-07-07] MEDS: POTASSIUM CHLORIDE 20 MEQ ER TABLET 60 MEQ PO (05:47)
[2025-07-07] MEDS: MAGNESIUM SULF 2 GM/WATER 50ML 2 GM/50 ML BAG IVPB (05:48)
[2025-07-07] MEDS: POTASSIUM CHLORIDE INJ 40 MEQ in SODIUM CHLORIDE 0.9% IV 500 ML 130 MEQ IVPB (08:15)
[2025-07-07] MEDS: THIAMINE HCL 100 MG TABLET PO (08:16)
[2025-07-07] MEDS: MULTIVITAMINS THERAPEUTIC TAB (*BKC) 1 TABLET PO (08:16)
[2025-07-07] MEDS: FOLIC ACID 1 MG TABLET PO (08:16)
[2025-07-07] MEDS: PANTOPRAZOLE SODIUM IV 40 MG VIAL IV PUSH (08:16)
[2025-07-07 13:21] LABS: Anion Gap 7 mmol/L (4-12); Blood Urea Nitrogen 10 mg/dL (9-20); Calcium 8.9 mg/dL (8.4-10.2); Carbon Dioxide 29 mmol/L (22-30); Chloride 92 mmol/L (98-107); Estimated CRCL calculation 141 ml/min; Estimated Glomerular Filt Rate > 60; Glucose 109 mg/dL (65-110); Potassium 3.3 mmol/L (3.4-5.0); Sodium 128 mmol/L (137-145)
--- NOTE | 2025-07-07 13:26 | P.DS_ITS ---
DS: Admitting Diagnosis Discharge Date 07/07/25 Admitting Diagnosis - acute pancreatitis - nausea/vomiting - dehydration - hyponatremia - leukocytosis -alcohol abuse - severe protein-calorie malnutrition DS: Discharge Diagnosis Discharge Diagnosis (1) Pancreatitis: Code(s): K85.90 - Acute pancreatitis without necrosis or infection, unspecified Status: Acute (2) Alcoholic ketosis: Code(s): E88.89 - Other specified metabolic disorders Status: Acute (3) Dehydration with hyponatremia: Code(s): E86.0 - Dehydration; E87.1 - Hypo-osmolality and hyponatremia Status: Acute (4) Leukocytosis: Code(s): D72.829 - Elevated white blood cell count, unspecified Status: Acute (5) Alcohol abuse: Code(s): F10.10 - Alcohol abuse, uncomplicated Status: Acute (6) Abnormal urinalysis: Code(s): R82.90 - Unspecified abnormal findings in urine Status: Acute (7) Transaminitis: Code(s): R74.01 - Elevation of levels of liver transaminase levels Status: Acute (8) High triglycerides: Code(s): E78.1 - Pure hyperglyceridemia Status: Acute (9) MIR (acute kidney injury): Code(s): N17.9 - Acute kidney failure, unspecified Status: Acute (10) Severe protein-calorie malnutrition: Code(s): E43 - Unspecified severe protein-calorie malnutrition Status: Acute (11) Cyclical vomiting: Code(s): R11.15 - Cyclical vomiting syndrome unrelated to migraine Status: Acute DS: Summary Hospital Course Reason for hospitalization: - acute pancreatitis - nausea/vomiting - dehydration - hyponatremia - leukocytosis -alcohol abuse - severe protein-calorie malnutrition Hospital Course: Jorge Ortiz is a 30 yo male with PMH of alcohol abuse who presents emergency department with complaints of epigastric abdominal pain, nausea, vomiting. In the ED, showed CT abdomen/pelvis with no acute abnormality, diffuse hepatic steatosis. Right upper quadrant ultrasound showed fatty infiltration of the liver with hepatomegaly. WBC 25, hemoglobin 20, pH 7.4, pCO2 41, bicarb 25, sodium 127, chloride 88, anion gap 24, BUN 49, creatinine 1.1, calcium 10.4, T bili 1.5, AST 147 ALT 93, alk-phos 127, triglycerides 300. Lipase 1368. UA with 2+ protein, 3+ ketones, 2+ bilirubin, trace LE, 6-10 WBC. Patient was admitted to the IMU for further evaluation and management of suspected acute pancreatitis and dehydration. While admitted, patient received aggressive IV fluid resuscitation and pain co ntrol with improvement in his symptoms. His diet was advanced to a low-fat regular diet without further pain or vomiting. Lipase trended down. Patient admitted to history of similar episodes in the past possibly related to cyclic vomiting. He denied heavy marijuana use. He has never seen GI. Patient was encouraged to establish with GI as an outpatient. Patient was found have significant leukocytosis on admission. He was afebrile without signs or symptoms of infection. UA slightly abnormal, but patient denied urinary symptoms. Further lab work was consistent with dehydration. Leukocytosis likely secondary to hemoconcentration. He was initially started on Rocephin, but do not feel further antibiotics are warranted at this time. Leukocytosis significantly improved with IV fluids. Will follow pending urine culture and blood cultures on discharge. Patient also noted to have elevated liver enzymes likely in the setting alcohol abuse. Liver enzymes were overall improving on discharge. Patient was encouraged complete abstinence from alcohol. He was given resources for outpatient rehabilitation. Patient was monitored on [facility] and did not show signs of alcohol withdrawal while admitted. Patient was also noted to be hyponatremic with sodium 127 on admission. This appears chronic in nature as sodium was 127 12/2024. Likely secondary to dehydration and alcohol abuse. Sodium minimally improved on discharge, patient asymptomatic. Encouraged to establish with PCP to monitor sodium levels. Patient also had an MIR. Cr on presentation was 1.1 with his baseline around 0.6. This was likely a prerenal injury in setting of dehydration. His creatinine returned to baseline on discharge. Patient also noted to be hypokalemic with K+ 2.8. He received IV and p.o. replacement with improvement. He was discharged on p.o. potassium supplementation for 1 week and encouraged to continue to increase p.o. intake. Patient was instructed to follow a low fat diet and maintain adequate hydration. Encouraged to quit drinking. Patient was discharged home in stable condition. Strict return precautions discussed. Status at Discharge Functional status at discharge: independent ambulation Time Spent with Patient Time attestation: Total time spent providing and/or coordinating discharge services: Time spent: Greater than 30 minutes Exam Narrative: General: NAD Eyes: EOMI ENT: neck supple Cardiovascular: Regular rate and rhythm Respiratory: Clear to auscultation, respirations even and unlabored on RA Gastrointestinal: Soft, no tenderness Genitourinary: no suprapubic tenderness Musculoskeletal: No edema Skin: warm, dry Neuro: Alert. Psych: Mood appropriate DS: Data Data Completed and Pending Completed studies during hospitalization: - CT abdomen pelvis - RUQ US Pending studies at discharge: - urine culture - blood cultures Labs on day of discharge: Labs from last 24 hours 07/07/25 07/07/25 13:05 04:21 WBC 12.3 H RBC 4.24 L Hgb 14.9 Hct 42.4 MCV 100.0 MCH 35.1 H MCHC 35.1 RDW 12.1 Plt Count 145 L MPV 10.4 Immature Gran % (Auto) 0.6 H Neut % (Auto) 79.9 H Lymph % (Auto) 7.8 L [place] % (Auto) 11.1 H Eos % (Auto) 0.4 Baso % (Auto) 0.2 Lymph # (Auto) 0.96 [place] # (Auto) 1.4 H Eos # (Auto) 0.1 Baso # (Auto) 0.0 Abs Immat Gran (auto) 0.07 H Absolute Neuts (auto) 9.9 H Absolute Nucleated RBC 0.000 Nucleated RBC % 0.0 Sodium 128 L 129 L Potassium 3.3 L 2.8 L* Chloride 92 L 91 L Carbon Dioxide 29 30 Anion Gap 7 8 BUN 10 10 D Creatinine 0.51 L 0.52 L Estim Creat Clear Calc 141 141 Estimated GFR > 60 > 60 Glucose 109 90 Calcium 8.9 9.1 Magnesium 1.8 Total Bilirubin 2.0 H AST 67 H ALT 49 Alkaline Phosphatase 73 Total Protein 5.9 L Albumin 3.4 L Triglycerides 133 Cholesterol 127 LDL Cholesterol Direct 47 HDL Direct 47 Lipase 983 H Discharge Plan Discharge Attending physician on discharge: Alan Guerra Consulting providers: Risa Greenfield Discharging Clinician: Risa Greenfield Patient Disposition: Home Activity: as tolerated Diet: low fat Discharge Instructions: Take all medications as prescribed. Follow-up with your primary care provider in one week. While in the hospital, your liver enzymes were mildly elevated likely due to alcohol. It is important to establish with a primary care doctor and have your liver enzymes rechecked to ensure they are approving. Your potassium level was mildly low. This will continue to improve as your diet improves. Continue to take a potassium supplement for one week. Your sodium level was also low. This is likely due to alcohol use. It is important to follow-up with a primary care doctor to have your sodium levels rechecked. Work on quitting drinking alcohol which will prevent further episodes of pancreatitis. Return to the emergency department if you develop chest pain, shortness of breath, persistent fever >100.4, confusion, loss of consciousness. Patient Instructions: Antibiotic Form, Pancreatitis (DC) Patient Language: [place] Stand Alone Forms: General Discharge Information Follow-up/Referrals: Simeon Olsen MD [Physician] - Call for Appointment (abdominal pain, vomiting) Discharge Medications: New folic acid 1 mg Tablet 1 mg PO DAILY Qty: 30 0RF multivitamin with folic acid [Thera] 400 mcg Tablet 1 tablet PO QAM Qty: 30 0RF ondansetron 4 mg tablet,disintegrating 4 mg PO Q8H PRN (Reason: nausea and vomiting) Qty: 12 0RF thiamine HCl (vitamin B1) [Vitamin B-1] 100 mg Tablet 100 mg PO QAM Qty: 30 0RF pantoprazole 40 mg tablet,delayed release (DR/EC) 40 mg PO QAM 28 Days Qty: 28 0RF potassium chloride [K-Tab] 20 mEq tablet extended release 20 meq PO DAILY Qty: 7 0RF Date of admission: 07/06/25 03:50 Primary Care Provider: PHYSICIAN,[employer]ENT Admitting Provider: Alan Guerra Attending physician on admission: Alan Guerra Condition: Stable
--- NOTE | 2025-07-11 09:34 | PC.NURSE ---
Urine cx shows 10,000 colocy of bacteria per ml of urine. This is considered to not be clinically significant.
--- NOTE | 2025-07-12 08:15 | PC.NURSE ---
Urine cx is negative.
== END 2025-07-07 14:04 | disposition home or self-care (01) ==
LOC: ANHED 07-06 03:52 → ANHIMU 07-06 04:26 → ANH2MED 07-06 10:50
PROVIDERS: Nurse Practitioner; Physician Assistant; Admitting Provider Internal Medicine; Emergency Provider Student in an Organized Health Care Education/Training Program; Visit Provider Internal Medicine
DX: K85.90 Acute pancreatitis without necrosis or infection, unspecified (principal); N17.9 Acute kidney failure, unspecified; E87.1 Hypo-osmolality and hyponatremia; E86.0 Dehydration; R11.15 Cyclical vomiting syndrome unrelated to migraine; E88.89 Other specified metabolic disorders; R74.01 Elevation of levels of liver transaminase levels; D72.829 Elevated white blood cell count, unspecified; E43 Unspecified severe protein-calorie malnutrition; R82.90 Unspecified abnormal findings in urine; K76.0 Fatty (change of) liver, not elsewhere classified; E78.1 Pure hyperglyceridemia; F17.290 Nicotine dependence, other tobacco product, uncomplicated; F12.90 Cannabis use, unspecified, uncomplicated; F10.90 Alcohol use, unspecified, uncomplicated; Z68.1 Body mass index [BMI] 19.9 or less, adult
CPT/HCPCS: 36415; 74177; 76705; 80048; 80053; 80061; 81001; 82010; 82803; 82948; 83036; 83605; 83690; 83735; 84145; 84478; 85025; 87040; 87086; 93005; 96361; 96365; 96366; 96374; 96375; 99285; A9270; G0378; G0379; J0696; J1171; J2405; J2470; J2765; J3475; J3480; J7030; J7040; J7120; Q9967

== ENCOUNTER 2025-08-20 15:05 | Emergency (ER) | payer SELFPAY ==
--- NOTE | ~2025-08-20 | CT_ITS ---
Jorge Ortiz EXAMINATION: CT abdomen pelvis w con COMPARISON: None HISTORY: abdominal pain, hx pancreatitis TECHNIQUE: Axial images were obtained through the abdomen, pelvis post administration of IV contrast. Oral contrast was also administered. Coronal reconstruction images were obtained from the axial views. CT scan performed using dose optimization techniques including the following automated exposure control; adjustment of mA and/or kV; use of iterative reconstruction technique. Automatic exposure control was used to reduce radiation dose. Permanent radiation dose record is archived to PACS. FINDINGS: CT abdomen: LUNG BASES: The lung bases are clear. The visualized portions of the heart and pericardium are unremarkable. LIVER: Moderate hepatic steatosis. Portal vein patent. No intrahepatic biliary duct dilatation. SPLEEN: Unremarkable. KIDNEYS: Right Kidney: Unremarkable. No calculi. No hydronephrosis. Left Kidney: Unremarkable. No calculi. No hydronephrosis ADRENAL GLANDS: Unremarkable. PANCREAS: Unremarkable. GALLBLADDER/BILIARY: Unremarkable. No biliary dilatation. STOMACH AND ESOPHAGUS: The stomach is decompressed. BOWEL/MESENTERY: No colitis or diverticulitis. Appendix normal. Mesentery normal. Small bowel normal. ADENOPATHY/RETROPERITONEUM: No lymphadenopathy. AORTA/VASCULATURE: Normal caliber aorta. FREE FLUID OR FREE AIR: None. CT pelvis: SOLID ORGANS/REPRODUCTIVE: Unremarkable. BLADDER: Within normal limits. OSSEOUS STRUCTURES: No acute osseous abnormality.No suspicious lesions. OVERLYING SOFT TISSUES: Unremarkable. IMPRESSION: No acute intra-abdominal process Reviewed, dictated and finalized at location A.
[2025-08-20 15:06] VITALS: BP 122/98; PULSE 76; RESP 18; TEMP 36.6; O2SAT 99
[2025-08-20 16:50] VITALS: BP 135/93; PULSE 90; RESP 18; O2SAT 99
[2025-08-20 16:58] LABS: Hematocrit 44.2 % (42.0-52.0); Hemoglobin 16.0 g/dL (14.0-18.0); Immature Granulocyte Percent A 0.4 % (0-0.5); Lymphocytes Absolute Auto 0.82 K/mm3 (0.9-3.2); Mean Corpuscular HGB Conc 36.2 g/dl (32-36); Mean Corpuscular Hemoglobin 33.8 pg (26-34); Mean Corpuscular Volume 93.2 fl (80-100); Nucleated Red Blood Cells Absolute Auto 0.000 K/mm3 (0.0-0.012); Nucleated Red Blood Cells Perc 0.0 % (0.0-0.2); Platelet Count Result 266 k/mm3 (150-375); Red Blood Count 4.74 M/mm3 (4.6-6.20); White Blood Count 14.0 K/mm3 (4.5-10.0)
--- NOTE | 2025-08-20 17:00 | ED.ABDPAIN ---
HPI - Abdominal Pain General Chief Complaint: Abdominal Pain Stated Complaint: issues with pancreas Time Seen by Provider: 08/20/25 16:42 History of Present Illness HPI narrative: Patient is a 30-year-old male who presents to the ER with abdominal pain and nausea. He reports he has a history of pancreatitis and was last here approximately 1 month ago. Patient reports he drank alcohol approximately 3 days ago. He reports his pain and nausea started yesterday. Patient reports he had diarrhea in the morning yesterday. Denies any recent fevers, chest pain, shortness of breath, or urinary symptoms. He denies any other medical history relevant to this ER visit. Patient reports he has decreased his alcohol and uses marijuana on occasion. Related Data Allergies Allergy/AdvReac Type Severity Reaction Status Date / Time No Known Allergies Allergy Verified 08/20/25 15:05 Review of Systems Review of Systems: All systems reviewed & are unremarkable except as noted in HPI and below PMFSH Family History Family History Grandparent Diabetes mellitus Social History Social History Years smoked: 9 Smoking status: Current every day smoker Tobacco type: e-cigarettes/vaping Alcohol intake: current Drinks per week: 70 Substance use: current Substance use type: marijuana Last use: 06/29/2025 Lack of Transportation: No Lack of Food: Never True Current Housing: I Have Housing Concerned About Future Housing: No Difficulty Paying Gas/Electric Bills: No Difficulty Paying for Meds: No Currently Unemployed: No Education: High School Diploma/GED Difficulty w/ Childcare or Family Care: No Spiritual care concerns: No Exam Narrative: GENERAL: Ill appearing, well-nourished, non-toxic, in mild distress due to pain. HEAD: Normocephalic, atraumatic. NECK: Supple. No adenopathy, no masses. RESPIRATORY: Airway patent, respirations nonlabored. Clear to auscultation bilaterally, no rales, rhonchi, wheezing. CARDIOVASCULAR: Regular rate and rhythm without murmurs, rubs, or gallops. Peripheral pulses 2+ and equal bilaterally. ABDOMINAL: Soft, mildly tender left upper quadrant, slightly distended, no hepatosplenomegaly. Normoactive BS. MUSCULOSKELETAL: Moves all extremities. Strength/ROM intact without gross deformities. SKIN: Warm, dry, normal color. No rashes. NEURO: A&O X3. Speech clear. Cranial nerves II-XII intact. No ataxic movements. PSYCHIATRIC: Appropriate mood and affect. Normal interaction. Course Vital Signs Vital signs: Vital Signs Temperature 36.6 C 08/20/25 15:06 Pulse Rate 76 08/20/25 15:06 Respiratory Rate 18 08/20/25 15:06 Blood Pressure 122/98 H 08/20/25 15:06 Pulse Oximetry 99 08/20/25 15:06 Oxygen Delivery Room Air 08/20/25 15:06 Temperature 36.6 C 08/20/25 15:06 Pulse Rate 80 08/20/25 19:44 Respiratory Rate 14 08/20/25 19:44 Blood Pressure 124/88 08/20/25 19:44 Pulse Oximetry 99 08/20/25 19:44 Oxygen Delivery Room Air 08/20/25 16:50 MDM - Abdominal Pain MDM Narrative Medical decision making narrative: Patient is a 30-year-old male who presents to the ER with abdominal pain and nausea. He reports he has a history of pancreatitis and was last here approximately 1 month ago. Patient reports he drank alcohol approximately 3 days ago. He reports his pain and nausea started yesterday. Patient reports he had diarrhea in the morning yesterday. Denies any recent fevers, chest pain, shortness of breath, or urinary symptoms. He denies any other medical history relevant to this ER visit. Patient reports he has decreased his alcohol and uses marijuana on occasion. Labs Ordered: UA, CBC, CMP, phosphorus, magnesium, lipase, ethanol, UA Imaging Ordered: CT abdomen pelvis Medications Ordered: 1 L normal saline IV bolus, Dilaudid 0.5 mg IV, Zofran 4 mg IV, thiamine 100 mg IV, folic acid 1 mg Results: Patient's chemistry indicates a chloride of 94, anion gap of 17, glucose of 128, calcium of 10.7, magnesium of 1.4, bilirubin of 1.5, alk-phos of 145, total protein of 9.3, albumin of 5.5. His CBC indicates a white blood cell count of 14. Patient's urinalysis indicates a protein of 2+, ketones 1+, uro bili of 2.0. His ethyl alcohol level was less than 10. Patient's CT scan indicates No acute intra-abdominal process Diagnosis: Dehydration, abdominal pain Patient Education/Shared MDM: Results of lab work and imaging shared with patient. He endorses improvement of symptoms following medication administration. Patient strongly advised to maintain hydration status upon discharge and follow-up with his PCP in the next 2-3 days. He will be discharged home with a prescription for Reglan. Strict return precautions provided. Patient verbalized understanding and is in agreement with plan. Vital signs stable at time of discharge. All questions answered. Differential Diagnosis Differential diagnosis: Likely abdominal pain, acute appendicitis, calculus of kidney, constipation and gastroenteritis Lab Data Attestation: I reviewed the patient's lab results. 08/20/25 16:52 08/20/25 16:52 Labs: Lab Results 08/20/25 08/20/25 Range/Units 16:52 19:29 WBC 14.0 H (4.5-10.0) K/mm3 RBC 4.74 (4.6-6.20) M/mm3 Hgb 16.0 (14.0-18.0) g/dL Hct 44.2 (42.0-52.0) % MCV 93.2 (80-100) fl MCH 33.8 (26-34) pg MCHC 36.2 H (32-36) g/dl RDW 12.2 (11.5-14.5) % Plt Count 266 D (150-375) k/mm3 MPV 9.9 (7.4-10.4) fl Immature Gran % (Auto) 0.4 (0-0.5) % Neut % (Auto) 82.1 H (45.5-73.1) % Lymph % (Auto) 5.9 L (18.3-44.2) % [place] % (Auto) 11.4 H (2.6-8.5) % Eos % (Auto) 0.0 (0-4.4) % Baso % (Auto) 0.2 (0.2-1.2) % Lymph # (Auto) 0.82 L (0.9-3.2) K/mm3 [place] # (Auto) 1.6 H (0.1-0.6) K/mm3 Eos # (Auto) 0.0 (0-0.3) K/mm3 Baso # (Auto) 0.0 (0.0-0.1) K/mm3 Abs Immat Gran (auto) 0.05 H (0.00-0.031) K/mm3 Absolute Neuts (auto) 11.5 H (1.3-6.7) K/mm3 Absolute Nucleated RBC 0.000 (0.0-0.012) K/mm3 Nucleated RBC % 0.0 (0.0-0.2) % Sodium 137 (137-145) mmol/L Potassium 3.6 (3.4-5.0) mmol/L Chloride 94 L (98-107) mmol/L Carbon Dioxide 26 (22-30) mmol/L Anion Gap 17 H (4-12) mmol/L BUN 16 (9-20) mg/dL Creatinine 0.81 (0.7-1.3) mg/dL Estim Creat Clear Calc 94 ml/min Estimated GFR > 60 (59 - ) Glucose 128 H (65-110) mg/dL Calcium 10.7 H (8.4-10.2) mg/dL Phosphorus 3.1 (2.5-4.5) mg/dL Magnesium 1.4 L (1.6-2.3) mg/dL Total Bilirubin 1.5 H (0.2-1.3) mg/dL AST 59 (17-59) U/L ALT 45 (6-50) U/L Alkaline Phosphatase 145 H (38-126) U/L Total Protein 9.3 H (6.3-8.2) g/dL Albumin 5.5 H (3.5-5.1) g/dL Lipase 262 (23-300) U/L Urine Color Yellow (Yellow) Urine Appearance Clear (Clear) Urine pH 7.5 (5.0-9.0) Ur Specific [place] > 1.045 H (1.001-1.035) Urine Protein 2+ H (Negative) mg/dL Urine Glucose (UA) Negative (Negative) mg/dL Urine Ketones 1+ H (Negative) mg/dL Ur Blood (Man) Negative (Negative) Urine Nitrate Negative (Negative) Urine Bilirubin Negative (Negative) Urine Urobilinogen 2.0 H (<2.0) mg/dL Leukocyte Esterase Rfl Negative (Negative) SYEDA/UL Urine RBC 0-2 (0-2) /hpf Urine WBC 0-3 (0-3) /hpf Ur Squamous Epith Cells None seen (Few) /hpf Urine Bacteria Rare (None) /hpf Ethyl Alcohol < 10 (<10) mg/dL Imaging Data Attestation: I personally reviewed and interpreted this imaging study as follows: Radiologist's impression: ITS Impressions Abdomen/Pelvis CT 08/20/25 17:45 IMPRESSION: No acute intra-abdominal process Discharge Plan Discharge Clinical Impression: Dehydration with hyponatremia, Consumes alcohol, Hypomagnesemia Patient Disposition: Home Condition: Stable Instructions: Antibiotic Form, Pancreatitis (ED), Dehydration (ED) Additional Instructions: Please return to the ER with any worsening symptoms. Follow-up with primary care provider as soon as possible for re-evaluation. Take all medications as prescribed, including regularly scheduled medications. Please remember to drink lots of water. Patient Language: Nauruan Prescriptions: New metoclopramide HCl 10 mg tablet 10 mg PO Q6H PRN (Reason: nausea and vomiting) Qty: 30 0RF No Action folic acid 1 mg Tablet 1 mg PO DAILY Qty: 30 0RF multivitamin with folic acid [Thera] 400 mcg Tablet 1 tablet PO QAM Qty: 30 0RF ondansetron 4 mg tablet,disintegrating 4 mg PO Q8H PRN (Reason: nausea and vomiting) Qty: 12 0RF thiamine HCl (vitamin B1) [Vitamin B-1] 100 mg Tablet 100 mg PO QAM Qty: 30 0RF pantoprazole 40 mg tablet,delayed release (DR/EC) 40 mg PO QAM 28 Days Qty: 28 0RF potassium chloride [K-Tab] 20 mEq tablet extended release 20 meq PO DAILY Qty: 7 0RF Follow-up/Referrals: Dave Murray DO [Physician, Family Practice] Referral Note: primary care provider PHYSICIAN,T[employer] KINDERGARTEN TEACHER [Primary Care Provider, Internal Medicine] Time of Disposition: 20:58
[2025-08-20] MEDS: HYDROmorphone HCL INJ (*CRX) 1 MG/ML SYR 0.5 MG IV PUSH (17:15)
[2025-08-20] MEDS: SODIUM CHLORIDE 0.9% IV 1,000 ML 999 ML IV CONT (17:15)
[2025-08-20] MEDS: ONDANSETRON INJ 4 MG/2 ML VIAL IV PUSH (17:15)
[2025-08-20] MEDS: THIAMINE HCL 200 MG/2 ML VIAL 100 MG IV PUSH (17:16)
[2025-08-20 17:25] LABS: Alanine Aminotransferase 45 U/L (6-50); Albumin Level 5.5 g/dL (3.5-5.1); Alkaline Phosphatase 145 U/L (38-126); Anion Gap 17 mmol/L (4-12); Aspartate Amino Transferase 59 U/L (17-59); Bilirubin,Total 1.5 mg/dL (0.2-1.3); Blood Urea Nitrogen 16 mg/dL (9-20); Calcium 10.7 mg/dL (8.4-10.2); Carbon Dioxide 26 mmol/L (22-30); Chloride 94 mmol/L (98-107); Estimated CRCL calculation 94 ml/min; Estimated Glomerular Filt Rate > 60; Glucose 128 mg/dL (65-110); Lipase 262 U/L (23-300); Potassium 3.6 mmol/L (3.4-5.0); Sodium 137 mmol/L (137-145); Total Protein 9.3 g/dL (6.3-8.2)
[2025-08-20] MEDS: FOLIC ACID 1 MG/0.2 ML INJ IV PUSH (17:28)
--- OUTSIDE RECORDS SUMMARY | 2025-08-20 17:33 | XMS_ITS | Clinical Summary ---
Author Organization [facility] [email or web address] Address [address] [place] [address] Care Team Providers Care Efficiency Analyst Name Role Phone Unavailable Primary Care Provider Unavailabl e Source Comments [facility],non-owned Affiliates and Associated Physician Practices is amultiple site organization consisting of ambulatory clinics and hospital sitesin [place], [place], [place] and [place]. This disclosure is being madepursuant to the Care Everywhere program and may not contain all information available regarding this patient. Last updated 18.[facility] [email or web address] Allergies No known active allergies Medications * Be aware that medications may not be up to date on this document. Alwaysverify current medications with the patient. 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 Gender Identity Not on file Sexual Orientation Not on file Last Filed Vital Signs Vital Sign Reading Time Taken Comments Blood Pressure 100/62 07/24/2011 2:00 PM CDT Pulse - - Temperature - - Respiratory Rate - - Oxygen Saturation - - Inhaled Oxygen Concentration - - Weight 55.6 kg (122 lb 9.2 oz) 07/24/2011 2:00 P M CDT Height 171.4 cm (5' 7.48) 07/24/2011 2:00 PM CD T Body Mass Index 18.93 07/24/2011 2:00 PM CDT Plan of Treatment Health Maintenance Due Date Last Done Comments HIV SCREENING 2011 HEPATITIS C SCREENING 03/12/2014 DTAP/TDAP/TD VACCINES (1 - Tdap) 2015 HEPATITIS B VACCINE (1 of 3 - 19+ 3-dose series) 2015 HPV VACCINE (1 - 3-dose SCDM series) 2023 DEPRESSION SCREENING 11/30/2024 COVID-19 VACCINE ( - 2023-2 5 season) 2025 INFLUENZA VACCINE (#1) 2025 ZOSTER VACCINE (1 of 2) 2046 HIB VACCINE Aged Out No longer eligi ble based on patient's age to complete this topic MENINGOCOCCAL (Group B) VACC INE SHARED DECISION-MAKING Aged Out No longer eligibl e based on patient's age to complete this topic MENINGOCOCCAL GROUPS A/C/Y/W VACCINE Aged Out No longer eligible b ased on patient's age to complete this topic PNEUMOCOCCAL VACCINE Aged Out No long er eligible based on patient's age to complete this topic
[2025-08-20 17:36] LABS: Magnesium 1.4 mg/dL (1.6-2.3)
[2025-08-20 19:44] VITALS: BP 124/88; PULSE 80; RESP 14; O2SAT 99
[2025-08-20 20:03] LABS: Add Urine Microscopic? YES; Appearance Urine Clear (Clear); Glucose Urine UA Negative (Negative); Leukocyte Esterase Ur Negative LEU/UL (Negative); Nitrate Urine Negative (Negative); Specific Grav Ur > 1.045 (1.001-1.035)
== END 2025-08-20 21:16 | disposition home or self-care (01) ==
PROVIDERS: Emergency Provider Registered Nurse
DX: E86.0 Dehydration (principal); E87.1 Hypo-osmolality and hyponatremia; E83.42 Hypomagnesemia; F10.90 Alcohol use, unspecified, uncomplicated; Y90.0 Blood alcohol level of less than 20 mg/100 ml; F17.290 Nicotine dependence, other tobacco product, uncomplicated
CPT/HCPCS: 36415; 74177; 80053; 81001; 82077; 83690; 83735; 84100; 85025; 96361; 96374; 96375; 99284; J1171; J2405; J3411; J7030; Q9967

== ENCOUNTER 2025-11-06 05:16 | Inpatient (IN) | payer SELFPAY ==
[2025-11-06] VITALS (13 sets, daily range): BP systolic 115–143; BP diastolic 73–113; PULSE 66–98; RESP 10–20; TEMP 36.4–36.8; O2SAT 99–100; BMI 17.7; BMI 19.0
--- NOTE | ~2025-11-06 | MR_ITS ---
EXAMINATION: MR MRCP wo/w con/w 3D wo ind DATE: 11/07/2025 09:03 INDICATION: 2 cm pancreatic lesion and pancreatitis TECHNIQUE: Magnetic resonance imaging (MRI) of the abdomen was performed with and without intravenous contrast. Sequences included coronal T2-weighted FS FSE, coronal T2-weighted FSE, axial T1-weighted LAVA, coronal FS FIESTA, axial dual- echo T1-weighted SPGR, coronal lava-FLEX, sagittal T2-weighted FSE, axial T2- weighted FSE, and axial DWI. Thick-slab T2-weighted FSE images were obtained for magnetic resonance cholangiopancreatography (MRCP). Maximum intensity projection 3-D reconstructions of the volumetric data were created by the technologist. Postcontrast sequences included coronal LAVA-flex and time course of axial T1- weighted LAVA. COMPARISON: CT exam from November 06, 2025 FINDINGS: ABDOMEN MRI: In the pancreatic uncinate region, a 1.7 x 1.4 x 1.4 cm mildly complex fluid intense lesion or mass is present as seen on image 27 series 6, image 16 series 9, and image 10 series 2. The lesion enhances along the peripheral margin but internally, the lesion has a mildly complex cystic appearance. On images 22 through 29 of series 16, the lesion has tubular appearing component extending cephalad but not clearly communicating with the pancreatic or biliary ducts. The pancreatic duct appears normal. The remainder the pancreas appears normal. The remainder of the solid organs, bones and vascular structures appear normal for technique. ABDOMEN MRCP: On the MRCP sequences, gallbladder appears normal as do the biliary ducts. Common bile duct measures up to 5 mm IMPRESSION: 1. A 1.7 x 1.4 x 1.4 cm mildly complex cystic lesion in the uncinate portion of the pancreas. Differential considerations included cystic neoplasm such as intraductal papillary mucinous neoplasm (IPMN), pseudocyst associated with pancreatitis given history provided, intrapancreatic choledochocyst/dino dochocele or unusual presentation of Caroli's disease. Close interval surveillance recommended if patient is managed conservatively; repeat abdominal MRI examination in 3 months or sooner if clinically appropriate. 2. Normal appearance of the MRCP. Although no clear communication between the cystic lesion/mass in the pancreatic uncinate region, ductal origin is possible and ERCP may provide additional beneficial information. Reviewed, dictated and finalized at location A. SERVICES COORDINATOR IMPRESSION: 1. A 1.7 x 1.4 x 1.4 cm mildly complex cystic lesion in the uncinate portion of the pancreas. Differential considerations included cystic neoplasm such as int raductal papillary mucinous neoplasm (IPMN), pseudocyst associated with pancrea titis given history provided, intrapancreatic choledochocyst/choledochocele or unusual presentation of Caroli's disease. Close interval surveillance recommend ed if patient is managed conservatively; repeat abdominal MRI examination in 3 months or sooner if clinically appropriate. 2. Normal appearance of the MRCP. Although no clear communication between the c ystic lesion/mass in the pancreatic uncinate region, ductal origin is possible and ERCP may provide additional beneficial information.
--- NOTE | ~2025-11-06 | XR_ITS ---
Examination: XR chest 1V portable Clinical History: abdominal pain Comparison: X-rays 08/29/2017 Technique: Portable AP Findings: Heart size normal. Lungs clear. No acute bony abnormality. IMPRESSION: 1. No acute cardiopulmonary findings given portable technique. Reviewed, dictated and finalized at location R. LEVELER
--- NOTE | ~2025-11-06 | CT_ITS ---
CT abdomen pelvis w con Clinical History: upper abdominal pain . Comparison: 08/20/2025 Technique: Axial images lung bases to symphysis pubis IV contrast information not listed in PACS Coronal, sagittal reformats CT images acquired with automatic exposure control for dose reduction DLP: 211 mGy-cm Findings: Lung bases: Clear. Visualized heart and pericardium: Unremarkable. Liver: Steatosis. Gallbladder: Unremarkable. Spleen: Unremarkable. Pancreas: Ill-defined hypodense lesion roughly 2 cm. Adrenal glands: Unremarkable. Kidneys: Right kidney- No hydronephrosis. No renal stones. Left kidney- No hydronephrosis. No renal stones. Distal esophagus/stomach: Unremarkable. Small bowel loops: Normal caliber and wall thickness. Colon: Normal caliber and wall thickness. Normal RLQ appendix. Nodes: No enlarged nodes. Peritoneum: No ascites. No free air. Mild ill-defined fluid or inflammation pancreaticoduodenal groove. Urinary bladder: Unremarkable. Prostate: Unremarkable. Bones: No acute bony abnormality. Soft tissues: Unremarkable. Aorta: No aneurysm or dissection. IVC: Unremarkable. Main portal vein/SMV/splenic vein: Patent. IMPRESSION: 1. Ill-defined 2 cm lesion within pancreatic head. Malignancy not excluded. Recommend MRI and/or endoscopic ultrasound. 2. No acute abnormality. A Reviewed, dictated and finalized at location R. TRONEURODIAGNOSTIC TECHNICIAN IMPRESSION: 1. Ill-defined 2 cm lesion within pancreatic head. Malignancy not excluded. Re commend MRI and/or endoscopic ultrasound. 2. No acute abnormality. A
--- OUTSIDE RECORDS SUMMARY | 2025-11-06 05:19 | XMS_ITS ---
Author Organization Unknown ENCOUNTERS Encounter Performer Location Date Diagnosis Diagnosis Status Pre Admit [facility] [address] [place] [address] [id number] Emergency [facility] [address] [place] [address] [id number] ISMAEL Pre Admit [facility] [address] [place] [address] [id number] Outpatient [facility] [address] [place] [address] [id number] ISMAEL Emergency [facility] [address] [place] [address] [id number] PAT Pre Admit [facility] [address] [place] [address] [id number] Pre Admit [facility] [address] [place] [address] [id number] Emergency [facility] [address] [place] [id number] [facility] [address] [place] [address] [id number] ISMAEL Pre Admit [facility] [address] [place] [address] [id number] *Note: Encounters from your own facility or health system may be excluded. Allergies, Adverse Reactions, Alerts Allergen Type Severity Identification Date Medications Name Date Quantity Days Supplied GPI Number
--- OUTSIDE RECORDS SUMMARY | 2025-11-06 05:19 | XMS_ITS | Clinical Summary ---
Author Organization [facility] [employer] Address [address] [place] [address] Care Team Providers Care Urban Design Consultant Name Role Phone Unavailable Primary Care Provider Unavailabl e Source Comments [facility],non-owned Affiliates and Associated Physician Practices is amultiple site organization consisting of ambulatory clinics and hospital sitesin [place] and [place]. This disclosure is being madepursuant to the Care Everywhere program and may not contain all information available regarding this patient. 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
--- NOTE | 2025-11-06 06:05 | ECG_ITS ---
Test Date: 2025-11-06 06:18:34 Measurements Intervals [place] Rate: 87 P: 93 CO: 152 QRS: 95 QRSD: 106 T: 56 QT: 362 QTc: 436 Interpretive Statements SINUS RHYTHM RIGHT AXIS DEVIATION POSSIBLE RIGHT ATRIAL ENLARGEMENT LEFT ATRIAL ENLARGEMENT INCOMPLETE RIGHT BUNDLE BRANCH BLOCK ST ELEVATION IN ANTEROLAT/INF LEADS, PROBABLY EARLY REPOLARIZATION BORDERLINE ECG Compared to ECG 07/05/2025 21:41:03 HEART RATE HAS DECREASED Electronically Signed On 11-06-2025 07:50:23 FLIGHT TEST MECHANIC by Tan Luna D.O.
[2025-11-06] MEDS: ONDANSETRON INJ 4 MG/2 ML VIAL IV PUSH ×2 (06:20→19:56)
[2025-11-06] MEDS: MORPHINE SULFATE (*CRX) 4 MG/ML INJ IV PUSH (06:20)
[2025-11-06] MEDS: PANTOPRAZOLE SODIUM IV 40 MG VIAL IV PUSH (06:20)
[2025-11-06] MEDS: SODIUM CHLORIDE 0.9% IV 1,000 ML 999 ML IV CONT (06:20)
[2025-11-06 06:31] LABS: Hematocrit 45.2 % (42.0-52.0); Hemoglobin 16.2 g/dL (14.0-18.0); Immature Granulocyte Percent A 1.0 % (0-0.5); Lymphocytes Absolute Auto 1.12 K/mm3 (0.9-3.2); Mean Corpuscular HGB Conc 35.8 g/dl (32-36); Mean Corpuscular Hemoglobin 34.2 pg (26-34); Mean Corpuscular Volume 95.6 fl (80-100); Nucleated Red Blood Cells Absolute Auto 0.000 K/mm3 (0.0-0.012); Nucleated Red Blood Cells Perc 0.0 % (0.0-0.2); Platelet Count Result 263 k/mm3 (150-375); Red Blood Count 4.73 M/mm3 (4.6-6.20); White Blood Count 15.8 K/mm3 (4.5-10.0)
[2025-11-06 06:47] LABS: Add Urine Microscopic? YES; Appearance Urine Clear (Clear); Glucose Urine UA Negative (Negative); Leukocyte Esterase Ur Negative LEU/UL (Negative); Need Manual Microscopic Reviewed; Nitrate Urine Negative (Negative); Specific Grav Ur 1.022 (1.001-1.035)
[2025-11-06 07:30] LABS: Alanine Aminotransferase 34 U/L (6-50); Albumin Level 5.2 g/dL (3.5-5.1); Alkaline Phosphatase 144 U/L (38-126); Anion Gap 16 mmol/L (4-12); Aspartate Amino Transferase 42 U/L (17-59); Bilirubin,Total 1.2 mg/dL (0.2-1.3); Blood Urea Nitrogen 6 mg/dL (9-20); CRP < 0.5 mg/dL (<1.0); Calcium 10.1 mg/dL (8.4-10.2); Carbon Dioxide 19 mmol/L (22-30); Chloride 95 mmol/L (98-107); Estimated CRCL calculation 100 ml/min; Estimated Glomerular Filt Rate > 60; Glucose 95 mg/dL (65-110); Magnesium 1.7 mg/dL (1.6-2.3); Potassium 3.9 mmol/L (3.4-5.0); Sodium 130 mmol/L (137-145); Total Protein 8.8 g/dL (6.3-8.2)
--- NOTE | 2025-11-06 07:47 | ED.ABDPAIN ---
HPI - Abdominal Pain General Chief Complaint: Abdominal Pain Stated Complaint: abdominal pain Time Seen by Provider: 11/06/25 07:04 Source: patient, RN notes reviewed and old records reviewed Mode of arrival: ambulatory Limitations: no limitations History of Present Illness HPI narrative: This is a 30 year old male with history of cyclic vomiting, alcohol abuse who presents for evaluation of abdominal pain with nausea and vomiting. He states that he has been having upper abdominal pain for over 1 week. He reports pain is constant and it started radiating to his back last night. He was unable to sleep and he developed nausea and vomiting today. He reports a small amount of blood in his emesis as well. He reports he has not had bowel movement in several days. He has received zofran, protonix and morphine while waiting to be evaluated, and he states his pain has now resolved. He states he last drank alcohol around . MD elicited complaint: abdominal pain Related Data Allergies Allergy/AdvReac Type Severity Reaction Status Date / Time No Known Allergies Allergy Verified 11/06/25 11:44 [facility] Past Medical History Medical History Transaminitis Pancreatitis Cyclical vomiting Alcohol abuse Family History Family History Grandparent Diabetes mellitus Social History Social History Years smoked: 9 Smoking status: Current every day smoker Tobacco type: e-cigarettes/vaping Second hand tobacco smoke exposure: No Alcohol intake: current Drinks per week: 15 (recent decrease in ETOH consumption) Substance use: current Substance use type: marijuana Last use: 06/29/2025 Lack of Transportation: No Lack of Food: Never True Current Housing: I Have Housing Concerned About Future Housing: No Difficulty Paying Gas/Electric Bills: No Difficulty Paying for Meds: No Currently Unemployed: No Education: High School Diploma/GED Difficulty w/ Childcare or Family Care: No Living arrangements: with family Occupation/Education: unemployed Spiritual care concerns: No Agree to blood products: Yes Exam Const: General: no acute distress and alert Orientation/consciousness: patient oriented x3 HENMT: Head: normal to inspection Face and sinus: normal facial exam Mouth: Yes Normal oral and palatal mucosa present, Yes lip normal and Yes moist mucous membranes Throat: posterior oropharynx normal and uvula midline Eyes: Conjunctivae: conjunctivae normal Pupils: Equal, round and reactive pupils present EOM: EOMs intact bilaterally Chest: Chest palpation & inspection: normal inspection of the chest Resp: Effort & Inspection: normal respiratory effort Auscultation: clear to auscultation bilaterally Cardio: Rate: regular rate Rhythm: regular rhythm Heart sounds: no murmurs GI: GI Palp: Yes Soft to palpation, Yes Tenderness to palpation present (GI) (epigastric), No Guarding due to palpation present (GI) and No Rigid due to palpation Auscultation: normal bowel sounds Back/Spine/Pelvis: Back: no CVA tenderness Skin: General skin exam: pallor Neuro: General: patient oriented x3, moves all extremities and CN's II-XI intact bilaterally Extrem: General: normal to inspection Psych: Mental Status: mental status grossly normal Affect: normal affect Attitude: cooperative Course Reevaluation(s) Reevaluation #1: Patient states he feels better after medications. I discussed labs showing he has pancreatitis and possible mass that may need imaging. HE is agreeable to admission Date: 11/06/25 Time: 09:50 Consultations Hospitalist: Time of Consult: 09:49 I have discussed the care of this patient with the following provider: Dr. Erin Valadez Vital Signs Vital signs: Vital Signs Temperature 97.6 F 11/06/25 05:17 Pulse Rate 98 11/06/25 05:17 Respiratory Rate 18 11/06/25 05:17 Blood Pressure 143/113 H 11/06/25 05:17 Pulse Oximetry 100 11/06/25 05:17 Temperature 98.3 F 11/06/25 14:00 Pulse Rate 85 11/06/25 14:00 Respiratory Rate 18 11/06/25 14:00 Blood Pressure 123/88 11/06/25 14:00 Pulse Oximetry 99 11/06/25 14:00 [facility] Narrative Medical decision making narrative: Patient presents with abdominal pain vomiting. He was given morphine IV , zofran 4 mg IV and protonix 40 mg IV. labs were ordered that showed leukocytosis with wbc 15. Lipase elevated to over 5000. CT shows inflammation at pancreas and duodenal junction that could be inflammation for cyst ot pancreatitis. Patient will be admitted for IV fluids and further evaluation of pancreatitis Differential Diagnosis Differential Diagnosis: pancreatitis, alcoholic gastritis, small bowel obstruction, appendicitis, PUD, GERD, MIR, dehydration Medical Records I have reviewed the following patient records and this information was taken into consideration when formulating the assessment and plan.: previous labs and previous ER visits Lab Data MDM Lab Attestation statement: I personally reviewed the patient's lab results. 11/06/25 06:19 11/06/25 06:19 Labs: Lab Results 11/06/25 Range/Units 06:19 WBC 15.8 H (4.5-10.0) K/mm3 RBC 4.73 (4.6-6.20) M/mm3 Hgb 16.2 (14.0-18.0) g/dL Hct 45.2 (42.0-52.0) % MCV 95.6 (80-100) fl MCH 34.2 H (26-34) pg MCHC 35.8 (32-36) g/dl RDW 12.4 (11.5-14.5) % Plt Count 263 (150-375) k/mm3 MPV 9.6 (7.4-10.4) fl Immature Gran % (Auto) 1.0 H (0-0.5) % Neut % (Auto) 80.6 H (45.5-73.1) % Lymph % (Auto) 7.1 L (18.3-44.2) % [place] % (Auto) 10.6 H (2.6-8.5) % Eos % (Auto) 0.3 (0-4.4) % Baso % (Auto) 0.4 (0.2-1.2) % Lymph # (Auto) 1.12 (0.9-3.2) K/mm3 [place] # (Auto) 1.7 H (0.1-0.6) K/mm3 Eos # (Auto) 0.0 (0-0.3) K/mm3 Baso # (Auto) 0.1 (0.0-0.1) K/mm3 Abs Immat Gran (auto) 0.15 H (0.00-0.031) K/mm3 Absolute Neuts (auto) 12.7 H (1.3-6.7) K/mm3 Absolute Nucleated RBC 0.000 (0.0-0.012) K/mm3 Nucleated RBC % 0.0 (0.0-0.2) % Sodium 130 L (137-145) mmol/L Potassium 3.9 (3.4-5.0) mmol/L Chloride 95 L (98-107) mmol/L Carbon Dioxide 19 L (22-30) mmol/L Anion Gap 16 H (4-12) mmol/L BUN 6 L D (9-20) mg/dL Creatinine 0.73 (0.7-1.3) mg/dL Estim Creat Clear Calc 100 ml/min Estimated GFR > 60 (59 - ) Glucose 95 (65-110) mg/dL Lactic Acid 1.4 (0.7-2.0) mmol/L Calcium 10.1 (8.4-10.2) mg/dL Magnesium 1.7 (1.6-2.3) mg/dL Total Bilirubin 1.2 (0.2-1.3) mg/dL AST 42 (17-59) U/L ALT 34 (6-50) U/L Alkaline Phosphatase 144 H (38-126) U/L C-Reactive Protein < 0.5 (<1.0) mg/dL Total Protein 8.8 H (6.3-8.2) g/dL Albumin 5.2 H (3.5-5.1) g/dL Triglycerides 213 H (<150) mg/dL Cholesterol 194 (0-200) mg/dL LDL Cholesterol Direct 96 mg/dL HDL Direct 49 mg/dL Lipase 5608 H (23-300) U/L Urine Color Yellow (Yellow) Urine Appearance Clear (Clear) Urine pH 5.0 (5.0-9.0) Ur Specific [place] 1.022 (1.001-1.035) Urine Protein 1+ H (Negative) mg/dL Urine Glucose (UA) Negative (Negative) mg/dL Urine Ketones 4+ H (Negative) mg/dL Ur Blood (Man) Trace (Negative) Urine Nitrate Negative (Negative) Urine Bilirubin Negative (Negative) Urine Urobilinogen 1.0 (<2.0) mg/dL Add Ur Microanalysis Reviewed Leukocyte Esterase Rfl Negative (Negative) SYEDA/UL Urine RBC 3-5 H (0-2) /hpf Urine WBC 0-5 (0-3) /hpf Ur Squamous Epith Cells None seen (Few) /hpf Urine Bacteria None seen /hpf Urine Casts 6-10 Urine Opiates Screen Negative (Negative) Urine Methadone Screen Negative (Negative) Ur Barbiturates Screen Negative (Negative) Ur Phencyclidine Scrn Negative (Negative) Ur Amphetamine Screen Negative (Negative) U Benzodiazepines Scrn Negative (Negative) Urine Cocaine Screen Negative (Negative) U Cannabinoids Screen Positive A (Negative) Ethyl Alcohol < 10 (<10) mg/dL Imaging Data Radiologist's impression: ITS Impressions Chest X-Ray 11/06/25 07:15 IMPRESSION: 1. No acute cardiopulmonary findings given portable technique. Abdomen/Pelvis CT 11/06/25 08:09 IMPRESSION: 1. Ill-defined 2 cm lesion within pancreatic head. Malignancy not excluded. Recommend MRI and/or endoscopic ultrasound. 2. No acute abnormality. A Discharge Plan Discharge Clinical Impression: Leukocytosis Pancreatitis Qualifiers: Chronicity: acute Pancreatitis type: alcohol induced Acute pancreatitis complication: unspecified Qualified Code(s): K85.20 - Alcohol induced acute pancreatitis without necrosis or infection Patient Disposition: Still a Patient Condition: Guarded Prognosis
[2025-11-06 08:12] LABS: Lipase 5608 U/L (23-300)
[2025-11-06 08:47] LABS: Cannabinoid Screen Urine Positive (Negative)
[2025-11-06] MEDS: LACTATED RINGERS 1,000 ML 125 ML IV CONT ×3 (10:21→22:52)
--- NOTE | 2025-11-06 10:23 | WPCEDHO ---
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 Allergies No Known Allergies Allergy (Verified 11/06/25 06:14) Family History (Last Reviewed 08/20/25 @ 20:51 by Ayanna Quiroz, MAYITO) Grandparent Diabetes mellitus Active Medications including assessments/comments Lactated Ringer's (Lr - Lactated Ringers Iv) 1,000 mls @ 125 mls/hr IV CONT .Q8H ANDREA Last Admin: 11/06/25 10:21 Dose: 125 mls/hr Documented By: YOHAN Infusion/Titration Document 11/06/25 10:21 YOHAN (Rec: 11/06/25 10:21 YOHAN [id number]) Intake IV Site Peripheral Access Right Antecubital Container Volume 1,000 Waste Amount 0 Dosing Infusion Rate 125 Cumulative Dose Not Applicable Increase/Decrease Started Elapsed Time Elapsed Time ( 0m minutes) Administered/Completed Medications Discontinued Medications Sodium Chloride (Normal Saline Iv) 1,000 mls @ 999 mls/hr IV CONT .Q1H1M STA Stop: 11/06/25 07:04 Last Infusion: 11/06/25 07:28 Dose: Infused Documented By: Admin: 11/06/25 06:20 Dose: 999 mls/hr Documented By: DMITRY Morphine Sulfate (Morphine Sulfate (*Crx) 4 Mg/Ml Inj) 4 mg IV PUSH ONCE STA Stop: 11/06/25 06:05 Last Admin: 11/06/25 06:20 Dose: 4 mg Documented By: DMITRY Ondansetron HCl (Ondansetron Inj 4 Mg/2 Ml Vial) 4 mg IV PUSH ONCE STA Stop: 11/06/25 06:05 Last Admin: 11/06/25 06:20 Dose: 4 mg Documented By: DMITRY Pantoprazole Sodium (Pantoprazole Sodium Iv 40 Mg Vial) 40 mg IV PUSH ONCE STA Stop: 11/06/25 06:05 Last Admin: 11/06/25 06:20 Dose: 40 mg Documented By: DMITRY Interventions/Assessments IV / Saline Lock, Insert Start: 11/06/25 05:16 Freq: Status: Active Protocol: Document 11/06/25 06:19 [facility] (Rec: 11/06/25 06:19 [facility] [id number]) IV Assessment Peripheral Access Right Antecubital IV Catheter Access Initiated IV Insertion Date 11/06/25 IV Insertion Time 06:19 Catheter Gauge 18 IV Insertion 1 Attempts Ultrasound Used for No Placement IV Site Assessment WNL IV Care and WNL Maintenance PA: Gastrointestinal Assessment Start: 11/06/25 05:16 Freq: Status: Active Protocol: Document 11/06/25 06:26 [facility] (Rec: 11/06/25 06:27 [facility] [id number]) GI Assessment Gastrointestinal Nausea,Pain,Vomiting Symptoms Description Soft,Tender All Quadrants Bowel Sounds Active Pattern Constipated Flatus Present Date of Last Bowel 11/02/25 Movement Nausea/Vomiting Assessment Nausea Frequency Intermittent Emesis Frequency Intermittent Emesis Description Bile,Undigested Food/Medications Last Vital Signs Temperature 97.9 F 11/06/25 10:22 Pulse Rate 66 11/06/25 10:22 Respiratory Rate 12 11/06/25 10:22 Pulse Oximetry 100 11/06/25 10:22 Blood Pressure 119/84 11/06/25 10:22 Blood Pressure Mean 95 11/06/25 10:22 Weight 54.5 kg 11/06/25 05:17 Last Result - Abnormals Only WBC 15.8 K/mm3 (4.5-10.0) H 11/06/25 06:19 MCH 34.2 pg (26-34) H 11/06/25 06:19 Immature Gran % (Auto) 1.0 % (0-0.5) H 11/06/25 06:19 Neut % (Auto) 80.6 % (45.5-73.1) H 11/06/25 06:19 Lymph % (Auto) 7.1 % (18.3-44.2) L 11/06/25 06:19 Early % (Auto) 10.6 % (2.6-8.5) H 11/06/25 06:19 Early # (Auto) 1.7 K/mm3 (0.1-0.6) H 11/06/25 06:19 Abs Immat Gran (auto) 0.15 K/mm3 (0.00-0.031) H 11/06/25 06:19 Absolute Neuts (auto) 12.7 K/mm3 (1.3-6.7) H 11/06/25 06:19 Sodium 130 mmol/L (137-145) L 11/06/25 06:19 Chloride 95 mmol/L (98-107) L 11/06/25 06:19 Carbon Dioxide 19 mmol/L (22-30) L 11/06/25 06:19 Anion Gap 16 mmol/L (4-12) H 11/06/25 06:19 BUN 6 mg/dL (9-20) L D 11/06/25 06:19 Alkaline Phosphatase 144 U/L (38-126) H 11/06/25 06:19 Total Protein 8.8 g/dL (6.3-8.2) H 11/06/25 06:19 Albumin 5.2 g/dL (3.5-5.1) H 11/06/25 06:19 Lipase 5608 U/L (23-300) H 11/06/25 06:19 Urine Protein 1+ mg/dL (Negative) H 11/06/25 06:19 Urine Ketones 4+ mg/dL (Negative) H 11/06/25 06:19 Urine RBC 3-5 /hpf (0-2) H 11/06/25 06:19 U Cannabinoids Screen Positive (Negative) A 11/06/25 06:19 Most Recent Suicide Severity Rating Suicide Severity Rating NO RISK INDICATED 11/06/25 05:17
--- NOTE | 2025-11-06 11:24 | P.HP_ITS ---
H&P: HPI History of Present Illness Date/Time: 11/06/25 11:24 Chief Complaint: ABD pain Narrative: Patient is a 30-year-old male with previous history of EtOH abuse, pancreatitis, cyclic vomiting, cannabis use who presented to the emergency department with worsening abdominal pain that included nausea and vomiting has not improved for over a week. patient did report his last alcoholic drink was around Thanksgiving. Patient states he has been having intermittent nausea and vomiting for over a week with no relief. Patient presented to the emergency department once his nausea vomiting during to moderate to severe epigastric pain that would radiate to back. Patient does report he has cut his EtOH abuse as well as his cannabinoid use. No active withdrawal symptoms at time of assessment In the ED: CT abdomen showing 2 cm lesion with pancreatic head, lipase greater than 5000 and mild leukocytosis symptoms consistent with pancreatitis. sodium was 130 with metabolic acidosis with evidence of dehydration showing ketones in urine. liver enzymes stable alk-phos 144. Drug screen was positive for cannabinoid. patient admitted to the medical unit on aggressive IV fluid resuscitation and pain management for pancreatitis I have consulted GI further evaluation of pancreatic lesion but more likely a pseudocyst will need to evaluate to ensure there is no bile duct obstruction. Review of Systems Review of Systems: All systems reviewed & are unremarkable except as noted in HPI and below PMFSH Past Medical History Medical History Transaminitis Pancreatitis Cyclical vomiting Alcohol abuse Family History Family History Grandparent Diabetes mellitus Social History Social History Years smoked: 9 Smoking status: Current every day smoker Tobacco type: e-cigarettes/vaping Second hand tobacco smoke exposure: No Alcohol intake: current Drinks per week: 15 (recent decrease in ETOH consumption) Substance use: current Substance use type: marijuana Last use: 06/29/2025 Lack of Transportation: No Lack of Food: Never True Current Housing: I Have Housing Concerned About Future Housing: No Difficulty Paying Gas/Electric Bills: No Difficulty Paying for Meds: No Currently Unemployed: No Education: High School Diploma/GED Difficulty w/ Childcare or Family Care: No Living arrangements: with family Occupation/Education: unemployed Spiritual care concerns: No Agree to blood products: Yes Meds Home Medications and Allergies Home Medications ?Medication ?Instructions ?Recorded ?Confirmed ?Type folic acid 1 mg tablet 1 mg PO DAILY #30 tabs 07/07 Rx multivitamin with folic acid 400 1 tablet PO QAM #30 t abs 07/07/25 Rx mcg tablet (Thera) ondansetron 4 mg disintegrating 4 mg PO Q8H PRN nausea and 07/07/25 Rx tablet vomiting #12 tabs pantoprazole 40 mg tablet,delayed 40 mg PO QAM 4 weeks #28 tabs 07/07/25 Rx release potassium chloride 20 mEq 20 meq PO DAILY #7 tabs 07/24 Rx tablet,extended release (K-Tab) thiamine HCl (vitamin B1) 100 mg 100 mg PO QAM #30 tab s 07/07/25 Rx tablet (Vitamin B-1) metoclopramide HCl 10 mg tablet 10 mg PO Q6H PRN nause a and 08/20/25 Rx vomiting #30 tabs Allergies Allergy/AdvReac Type Severity Reaction Status Date / Time No Known Allergies Allergy Verified 11/06/25 11:44 Vital Signs Vital Signs - 24 hr 11/06/25 05:17 11/06/25 06:14 11/06/25 06:15 Temperature 97.6 F Pulse Rate 98 96 92 Respiratory Rate 18 13 15 Blood Pressure 143/113 H 130/94 H Pulse Oximetry 100 100 100 11/06/25 06:31 11/06/25 06:32 11/06/25 06:45 Temperature Pulse Rate 86 80 76 Respiratory Rate 12 10 L 16 Blood Pressure 129/87 Pulse Oximetry 100 100 100 11/06/25 07:00 11/06/25 07:01 11/06/25 07:17 Temperature Pulse Rate 73 71 88 Respiratory Rate 12 17 13 Blood Pressure 125/90 125/90 Pulse Oximetry 100 100 100 11/06/25 08:57 11/06/25 10:22 Temperature 97.9 F Pulse Rate 69 66 Respiratory Rate 16 12 Blood Pressure 115/82 119/84 Pulse Oximetry 100 100 Results Labs Labs: Short CBC 11/06/25 Range/Units 06:19 WBC 15.8 H (4.5-10.0) K/mm3 Hgb 16.2 (14.0-18.0) g/dL Hct 45.2 (42.0-52.0) % Plt Count 263 (150-375) k/mm3 BMP 11/06/25 06:19 Sodium 130 L Potassium 3.9 Chloride 95 L Carbon Dioxide 19 L BUN 6 L D Creatinine 0.73 Glucose 95 Calcium 10.1 Liver Function 11/06/25 Range/Units 06:19 Total Bilirubin 1.2 (0.2-1.3) mg/dL AST 42 (17-59) U/L ALT 34 (6-50) U/L Alkaline Phosphatase 144 H (38-126) U/L Albumin 5.2 H (3.5-5.1) g/dL Urine 11/06/25 Range/Units 06:19 Urine Color Yellow (Yellow) Urine Appearance Clear (Clear) Urine pH 5.0 (5.0-9.0) Ur Specific [place] 1.022 (1.001-1.035) Urine Protein 1+ H (Negative) mg/dL Urine Glucose (UA) Negative (Negative) mg/dL Attestation: I personally reviewed all lab results Imaging CT scan - abdomen: Radiologist's impression: CT abdomen pelvis w con Clinical History: upper abdominal pain . Comparison: 08/20/2025 Technique: Axial images lung bases to symphysis pubis IV contrast information not listed in PACS Coronal, sagittal reformats CT images acquired with automatic exposure control for dose reduction DLP: 211 mGy-cm Findings: Lung bases: Clear. Visualized heart and pericardium: Unremarkable. Liver: Steatosis. Gallbladder: Unremarkable. Spleen: Unremarkable. Pancreas: Ill-defined hypodense lesion roughly 2 cm. Adrenal glands: Unremarkable. Kidneys: Right kidney- No hydronephrosis. No renal stones. Left kidney- No hydronephrosis. No renal stones. Distal esophagus/stomach: Unremarkable. Small bowel loops: Normal caliber and wall thickness. Colon: Normal caliber and wall thickness. Normal RLQ appendix. Nodes: No enlarged nodes. Peritoneum: No ascites. No free air. Mild ill-defined fluid or inflammation pancreaticoduodenal groove. Urinary bladder: Unremarkable. Prostate: Unremarkable. Bones: No acute bony abnormality. Soft tissues: Unremarkable. Aorta: No aneurysm or dissection. IVC: Unremarkable. Main portal vein/SMV/splenic vein: Patent. IMPRESSION: 1. Ill-defined 2 cm lesion within pancreatic head. Malignancy not excluded. Recommend MRI and/or endoscopic ultrasound. 2. No acute abnormality. A Quality VTE Prophylaxis VTE prophylaxis: mechanical ordered -Patient's previous records reviewed on admission -ER notes reviewed in detail on admission -discussed all findings and current treatment plan with patient/Family/POA -Consultations reviewed for recommendations -Patient's disposition for safe discharge discussed with business case analyst -radiology imaging, EKG and test results I have personally reviewed and interpreted unless otherwise specified Dictation performed by [employer] direct speech recognition software, therefore retail banker variants and typographical errors may occur. Assessment and Plan Assessment and plan (1) Pancreatitis: Qualifiers: Chronicity: acute Code(s): K85.90 - Acute pancreatitis without necrosis or infection, unspecified Status: Acute Assessment and Plan: patient with history of alcohol abuse presented with nausea vomiting and abdominal pain lipase greater than 5000 POA * continue aggressive IV fluids * IV Dilaudid p.r.n. for pain * NPO will advance to clear liquid until midnight tonight * NPO after midnight for MRCP tomorrow to rule * PPI daily * daily lipase * Lipid panel in a.m. (2) Alcohol abuse: Code(s): F10.10 - Alcohol abuse, uncomplicated Status: Acute Assessment and Plan: * ETOH <10 * IV fluids * Thiamine, folic acid, and multi-vitamin * PPI daily * librium if indicated * CIWA daily * Monitor and replenish electrolytes as needed * Seizure precautions if indicated (3) Cyclical vomiting: Code(s): R11.15 - Cyclical vomiting syndrome unrelated to migraine Status: Acute Assessment and Plan: likely secondary to patient's cannabis use * antiemetics * recommend immediate cessation from cannabis (4) Dehydration with hyponatremia: Code(s): E86.0 - Dehydration; E87.1 - Hypo-osmolality and hyponatremia Status: Acute Assessment and Plan: patient with sodium at 1:30 a.m. and ketones in urine secondary to nausea vomiting and poor oral intake * continue with IV fluids * continue antiemetics * trend labs daily (5) Leukocytosis: Code(s): D72.829 - Elevated white blood cell count, unspecified Status: Acute Assessment and Plan: leukocytosis 15.3 POA likely reactive no evidence of infection currently * trend daily (6) Pancreatic lesion: Code(s): K86.9 - Disease of pancreas, unspecified Status: Acute Assessment and Plan: CT abdomen showing pancreatic lesion 2 cm at the pancreatic head * GI consulted for any further recommendations * MRCP in the am for further evaluation * NPO at midnight Plan Code status: Full code per patient DVT prophylaxis: Scd's Stress ulcer prophylaxis: Protonix 40 daily PT/OT notes: Ambulatory Disposition: patient admitted to the medical unit for acute pancreatitis will continue with aggressive IV fluids, pain management and antiemetics GI has been consulted for evaluation of 2 cm lesion on pancreatic head. Will continue advance patient's diet as tolerated once medically stable can discharged home. Prior Studies I have reviewed the following patient records and this information was taken into consideration when formulating the assessment and plan.: previous labs, previous ER visits and previous hospitalizations Consultations Consultations: I have discussed the care of this pt with the consulting providers. Time Spent with Patient Time with patient: 45 - 74 minutes Hospitalist MIPS Advance Care Plan I have confirmed that the patient's Advanced Care Plan is present, code status is documented, or surrogate decision maker is listed in patient medical record.: Yes Medication Reconciliation I have utilized all available resources to obtain, update and review the patients current medications (includes all prescriptions, OTC, herbals, cannabis, and nutritional supplements).: Yes The patient is not eligible for med reconciliation; the patient is in a emergent medical situation where delaying treatment would jeopardize the patients health.: No
--- NOTE | 2025-11-06 12:49 | WPDGICN ---
Assessment and Plan Assessment and plan (1) Acute pancreatitis: Code(s): K85.90 - Acute pancreatitis without necrosis or infection, unspecified Status: Acute (2) Pancreatic lesion: Code(s): K86.9 - Disease of pancreas, unspecified Status: Acute (3) Epigastric pain: Code(s): R10.13 - Epigastric pain Status: Acute (4) Fatty infiltration of liver: Code(s): K76.0 - Fatty (change of) liver, not elsewhere classified Status: Acute (5) Alcohol abuse: Code(s): F10.10 - Alcohol abuse, uncomplicated Status: Acute (6) Leukocytosis: Code(s): D72.829 - Elevated white blood cell count, unspecified Status: Acute Plan 1. Acute Pancreatitis / Pancreatic Lesion/ Chronic ETOH Abuse: Admitted for acute pancreatitis with CAT scan showing a 2 cm hypodense lesion at the pancreatic head and mild ill-defined fluid or inflammation at the pancreatic duodenal groove with elevated lipase of greater than 5000. These findings are consistent with Acute Pancreatitis. His WBC is slightly elevated, which could be reactive-as this has been chronic. He presents with constant epigastric pain radiating to the back, which started around Thanksgiving and has been constant for the last week. This morning he had two episodes of hematemesis and severe abdominal pain awakened from his sleep. He has a history of recurrent pancreatitis and admitted back in June 2025 and workup at that time with abdominal ultrasound with no gallstones. He does continue to drink 2-3 shots of liquor per day previously was drinking a 5th of alcohol daily for 10 years. Has recurrent acute pancreatitis likely secondary to ETOH and lesion could be inflammatory vs. pancreatic pseudocyst vs pancreatic necrosis vs pancreatic malignancy although less likely. He appears well and no signs of decompensation. He has been given IV fluids. -Plan to obtain an MRCP to get a more detailed image of the gallbladder, pancreas, and bile ducts to further evaluate the pancreatic lesion and rule out gallstones. -Will remain NPO -Will check triglycerides. -Advance diet as tolerated, once MRCP is completed, trial of clear liquids. -Supportive Tx recommended -Needs 100% complete alcohol abstinence and smoking cessation -Supportive Tx for Alcohol Withdrawal. -Social Work to help with resources -Baclofen can be used to help with alcohol cravings, this can be managed per hospitalist if needed. -Counseled him on the potential causes of his pancreatitis, including alcohol and gallstones. Discussed the findings on the CAT scan and explained that the lesion could be a pseudocyst, calcifications from prior inflammation, or necrosis, and that a malignancy is less likely. -Further recs to follow MRCP findings as well. This report may have been done utilizing a voice recognition system. Attempts have been made to correct errors. However, there may be uncorrected grammatical, spelling, and recognition errors present.No . 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 He presented to the ER on 11/06/2025 with complaints of epigastric abdominal pain and vomiting. GI consulted for pancreatitis and a pancreatic lesion. He has a history of pancreatitis in June 2025 (admitted x 2 days) and July of 2025. No occurrence of pancreatitis on previous imaging in June or July, this was based on lipase and abdominal pain. This current episode of abdominal pain began around 10/26. Initially, the pain was intermittent, but it has been constant for the past week. The pain is described as being in epigastric region and radiates to his right side of his back and shoulder. Eating can sometimes exacerbate the pain; he reports chicken noodle soup last night made it worse. He thought he was doing better as he went to bed last night with no complaints of abdominal pain but was awoken this AM with epigastric pain into right back and then vomited twice this morning around 3:00 a.m. The vomitus contained a mix of small amount of blood. After vomiting, the abdominal pain improved slightly, but his back pain worsened significantly. He has been taking ibuprofen for the pain with no improvement. He has a history of significant alcohol use, previously drinking half a fifth of liquor daily for about 10 years, which he has reduced to approximately three to four shots daily since his last hospital admission in July. His last alcoholic beverage was two shots on . He denies any history of gallstones, yellowing of the eyes, unintentional weight loss, trouble swallowing, or painful swallowing. His last bowel movement was 4 days ago but has not had much of appetite. States he is passing gas. He reports increased belching. He denies any change in bowel habits, constipation, diarrhea, melena, or hematochezia. He denies any fevers or appetite loss. ENDOSCOPY HISTORY: EGD: No prior EGD history available. COLONOSCOPY: No prior colonoscopy history available. LABS AND STOOL STUDIES: WBC 15.8, hemoglobin 16, hematocrit 45, platelets 263, MCV 95, Na 130, K 3.9, BUN 6, creatinine 0.73, lactic acid 1.4, calcium 10.1, magnesium 1.7, total bilirubin 1.2, AST 42, ALT 34, alkaline phosphatase 144, CRP <0.5, albumin 5.2, lipase 5608 IMAGING: CAT scan abdomen pelvis w con 07/06/2025 Impression: Ill-defined 2 cm lesion within pancreatic head. Malignancy not excluded. Recommend MRI and/or endoscopic ultrasound. No acute abnormality. Mild ill-defined fluid or inflammation pancreaticoduodenal groove. Liver steatosis. US abdomen limited 07/06/2025 Impression: Fatty infiltration of the liver with hepatomegaly. The pancreas is normal without focal mass or pancreatic ductal dilation. History of Present Illness Current symptoms: Reports abdominal pain; Denies nausea, vomiting, fever(s) or weight loss Progression: no change Progression of this episode over time: no change Pertinent history: Reports alcohol use Alcohol use: Yes Previous treatment: Reports CT scan [facility] Past Medical History Medical History Transaminitis Pancreatitis Cyclical vomiting Alcohol abuse Family History Family History Grandparent Diabetes mellitus Social History Social History Years smoked: 9 Smoking status: Current every day smoker Tobacco type: e-cigarettes/vaping Second hand tobacco smoke exposure: No Alcohol intake: current Drinks per week: 15 (recent decrease in ETOH consumption) Substance use: current Substance use type: marijuana Last use: 06/29/2025 Lack of Transportation: No Lack of Food: Never True Current Housing: I Have Housing Concerned About Future Housing: No Difficulty Paying Gas/Electric Bills: No Difficulty Paying for Meds: No Currently Unemployed: No Education: High School Diploma/GED Difficulty w/ Childcare or Family Care: No Living arrangements: with family Occupation/Education: unemployed Spiritual care concerns: No Agree to blood products: Yes Meds Home Medications and Allergies Home Medications ?Medication ?Instructions ?Recorded ?Confirmed ?Type folic acid 1 mg tablet 1 mg PO DAILY #30 tabs 07/07/25 Rx multivitamin with folic acid 400 1 tablet PO QAM #30 tabs 07/07/25 Rx mcg tablet (Thera) ondansetron 4 mg disintegrating 4 mg PO Q8H PRN nausea and 07/07/25 Rx tablet vomiting #12 tabs pantoprazole 40 mg tablet,delayed 40 mg PO QAM 4 weeks #28 tabs 07/07/25 Rx release potassium chloride 20 mEq 20 meq PO DAILY #7 tabs 07/07/25 Rx tablet,extended release (K-Tab) thiamine HCl (vitamin B1) 100 mg 100 mg PO QAM #30 tabs 07/07/25 Rx tablet (Vitamin B-1) metoclopramide HCl 10 mg tablet 10 mg PO Q6H PRN nausea and 08/20/25 Rx vomiting #30 tabs Allergies Allergy/AdvReac Type Severity Reaction Status Date / Time No Known Allergies Allergy Verified 11/06/25 11:44 Vital Signs Vital Signs - 24 hr 11/06/25 05:17 11/06/25 06:14 11/06/25 06:15 Temperature 97.6 F Pulse Rate 98 96 92 Respiratory Rate 18 13 15 Blood Pressure 143/113 H 130/94 H Pulse Oximetry 100 100 100 11/06/25 06:31 11/06/25 06:32 11/06/25 06:45 Temperature Pulse Rate 86 80 76 Respiratory Rate 12 10 L 16 Blood Pressure 129/87 Pulse Oximetry 100 100 100 11/06/25 07:00 11/06/25 07:01 11/06/25 07:17 Temperature Pulse Rate 73 71 88 Respiratory Rate 12 17 13 Blood Pressure 125/90 125/90 Pulse Oximetry 100 100 100 11/06/25 08:57 11/06/25 10:22 Temperature 97.9 F Pulse Rate 69 66 Respiratory Rate 16 12 Blood Pressure 115/82 119/84 Pulse Oximetry 100 100 Exam Const: General: comfortable and no acute distress Eyes: General: appearance normal, both eyes and all related structures Resp: Effort & Inspection: normal respiratory effort Auscultation: clear to auscultation bilaterally Cardio: Rate: regular rate Rhythm: regular rhythm GI: Inspection: non-distended GI Palp: Yes Soft to palpation, Yes Tenderness to palpation present (GI) (epigastric ) and No Guarding due to palpation present (GI) Auscultation: normal bowel sounds Skin: General skin exam: normal color Neuro: Speech: normal speech Extrem: General: normal to inspection Psych: Mental Status: mental status grossly normal Affect: normal affect Results Labs 11/06/25 06:19 11/06/25 06:19 Labs: Short CBC 11/06/25 Range/Units 06:19 WBC 15.8 H (4.5-10.0) K/mm3 Hgb 16.2 (14.0-18.0) g/dL Hct 45.2 (42.0-52.0) % Plt Count 263 (150-375) k/mm3 BMP 11/06/25 06:19 Sodium 130 L Potassium 3.9 Chloride 95 L Carbon Dioxide 19 L BUN 6 L D Creatinine 0.73 Glucose 95 Calcium 10.1 Liver Function 11/06/25 Range/Units 06:19 Total Bilirubin 1.2 (0.2-1.3) mg/dL AST 42 (17-59) U/L ALT 34 (6-50) U/L Alkaline Phosphatase 144 H (38-126) U/L Albumin 5.2 H (3.5-5.1) g/dL Urine 11/06/25 Range/Units 06:19 Urine Color Yellow (Yellow) Urine Appearance Clear (Clear) Urine pH 5.0 (5.0-9.0) Ur Specific [place] 1.022 (1.001-1.035) Urine Protein 1+ H (Negative) mg/dL Urine Glucose (UA) Negative (Negative) mg/dL
[2025-11-06] MEDS: HYDROmorphone HCL INJ (*CRX) 1 MG/ML SYR IV PUSH ×4 (13:03→22:51)
[2025-11-06 13:30] LABS: Cholesterol 194 mg/dL (0-200); HDL Direct 49 mg/dL; Triglycerides 213 mg/dL (<150)
[2025-11-07] MEDS: ONDANSETRON INJ 4 MG/2 ML VIAL IV PUSH (00:50)
[2025-11-07 06:00] VITALS: BP 117/78; PULSE 59; RESP 20; TEMP 36.8; O2SAT 100
[2025-11-07 06:21] LABS: Hematocrit 39.3 % (42.0-52.0); Hemoglobin 13.9 g/dL (14.0-18.0); Immature Granulocyte Percent A 0.5 % (0-0.5); Lymphocytes Absolute Auto 1.29 K/mm3 (0.9-3.2); Mean Corpuscular HGB Conc 35.4 g/dl (32-36); Mean Corpuscular Hemoglobin 34.2 pg (26-34); Mean Corpuscular Volume 96.6 fl (80-100); Nucleated Red Blood Cells Absolute Auto 0.000 K/mm3 (0.0-0.012); Nucleated Red Blood Cells Perc 0.0 % (0.0-0.2); Platelet Count Result 193 k/mm3 (150-375); Red Blood Count 4.07 M/mm3 (4.6-6.20); White Blood Count 9.9 K/mm3 (4.5-10.0)
[2025-11-07 06:50] LABS: Alanine Aminotransferase 22 U/L (6-50); Albumin Level 4.0 g/dL (3.5-5.1); Alkaline Phosphatase 109 U/L (38-126); Anion Gap 7 mmol/L (4-12); Aspartate Amino Transferase 37 U/L (17-59); Bilirubin,Total 0.9 mg/dL (0.2-1.3); CRP < 0.5 mg/dL (<1.0); Calcium 8.9 mg/dL (8.4-10.2); Carbon Dioxide 25 mmol/L (22-30); Chloride 98 mmol/L (98-107); Cholesterol 158 mg/dL (0-200); Estimated CRCL calculation 135 ml/min; Estimated Glomerular Filt Rate > 60; Glucose 80 mg/dL (65-110); HDL Direct 39 mg/dL; Magnesium 1.7 mg/dL (1.6-2.3); Potassium 3.8 mmol/L (3.4-5.0); Sodium 130 mmol/L (137-145); Total Protein 6.8 g/dL (6.3-8.2); Triglycerides 124 mg/dL (<150)
[2025-11-07 06:57] LABS: Blood Urea Nitrogen < 2 mg/dL (9-20)
[2025-11-07 08:00] VITALS: BP 117/78
--- NOTE | 2025-11-07 09:41 | P.PNIM_ITS ---
Assessment and Plan Assessment and Plan (1) Pancreatitis: Qualifiers: Acute pancreatitis complication: unspecified Chronicity: acute Pancreatitis type: alcohol induced Qualified Code(s): K85.20 - Alcohol induced acute pancreatitis without necrosis or infection Code(s): K85.90 - Acute pancreatitis without necrosis or infection, unspecified Status: Acute Assessment and Plan: patient with history of alcohol abuse presented with nausea vomiting and abdominal pain lipase greater than 5000 POA * continue aggressive IV fluids * IV Dilaudid p.r.n. for pain * l advance from clear to regular * MRCP normal appearance * PPI daily * daily lipase * Lipid panel WNL (2) Alcohol abuse: Code(s): F10.10 - Alcohol abuse, uncomplicated Status: Acute Assessment and Plan: * ETOH <10 * IV fluids * Thiamine, folic acid, and multi-vitamin * PPI daily * librium if indicated * CIWA daily * Monitor and replenish electrolytes as needed * Seizure precautions if indicated (3) Cyclical vomiting: Code(s): R11.15 - Cyclical vomiting syndrome unrelated to migraine Status: Acute Assessment and Plan: likely secondary to patient's cannabis use * antiemetics * recommend immediate cessation from cannabis (4) Dehydration with hyponatremia: Code(s): E86.0 - Dehydration; E87.1 - Hypo-osmolality and hyponatremia Status: Acute Assessment and Plan: patient with sodium at 1:30 a.m. and ketones in urine secondary to nausea vomiting and poor oral intake * continue with IV fluids * continue antiemetics * trend labs daily (5) Leukocytosis: Code(s): D72.829 - Elevated white blood cell count, unspecified Status: Resolved Assessment and Plan: leukocytosis 15.3 POA likely reactive no evidence of infection currently * trend daily (6) Pancreatic lesion: Code(s): K86.9 - Disease of pancreas, unspecified Status: Acute Assessment and Plan: CT abdomen showing pancreatic lesion 2 cm at the pancreatic head * GI consulted for any further recommendations * MRCP showed A 1.7 x 1.4 x 1.4 cm mildly complex cystic lesion in the uncinate portion of the pancreas. Differential considerations included cystic neoplasm such as intraductal papillary mucinous neoplasm (IPMN), pseudocyst associated with pancreatitis given history provided, intrapancreatic choledochocyst/choledochocele or unusual presentation of Caroli's disease. * Close interval surveillance recommended if patient is managed conservatively; repeat abdominal MRI examination in 3 months or sooner if clinically appropr iate. Plan Code status: Full code per patient DVT prophylaxis: Scd's Stress ulcer prophylaxis: Protonix 40 daily PT/OT notes: Ambulatory Disposition: patient admitted to the medical unit for acute pancreatitis will continue with aggressive IV fluids, pain management and antiemetics GI has been consulted for evaluation of 2 cm lesion on pancreatic head. Will continue advance patient's diet as tolerated once medically stable can discharged home. Medical Record Review I have reviewed the following patient records and this information was taken into consideration when formulating the assessment and plan.: previous labs, previous ER visits and previous hospitalizations Time Spent With Patient Time with patient: 15 - 25 minutes Subjective Date/time seen: 11/07/25 09:41 Interval history: Patient is a 30-year-old male admitted for further evaluation and treatment acute pancreatitis and evaluation pancreatic lesion located on the pancreatic head. 11/07/2025: Patient with minimal epigastric pain reports improvement from yesterday. Lipase down to 700. Patient tolerating advancement of diet with normal WBC and no fevers. Review of Systems Review of Systems: All systems reviewed & are unremarkable except as noted in HPI and below Exam Const: General: no acute distress and uncomfortable HENMT: Mouth: Yes dry mucous membranes Eyes: General: appearance normal, both eyes and all related structures Neck: Neck: supple Resp: Effort & Inspection: normal respiratory effort Auscultation: clear to auscultation bilaterally Cardio: Rate: regular rate Rhythm: regular rhythm GI: GI Palp: Yes Soft to palpation and Yes Tenderness to palpation present (GI) Auscultation: normal bowel sounds Skin: General skin exam: normal color and no rashes or lesions noted Wounds: no wounds Neuro: General: gait normal Speech: normal speech Motor exam (neuro): 5/5 motor strength present throughout Sensory Exam: normal sensation Extrem: General: normal to inspection Psych: Mental Status: mental status grossly normal Affect: normal affect Objective Data Vital Signs Vital Signs: Vital Signs - 24 hr 11/06/25 10:22 11/06/25 14:00 11/06/25 20:00 Temperature 97.9 F 98.3 F Pulse Rate 66 85 Respiratory Rate 12 18 Blood Pressure 119/84 123/88 Pulse Oximetry 100 99 Oxygen Delivery Room Air 11/06/25 21:58 11/07/25 06:00 Temperature 98.1 F 98.2 F Pulse Rate 66 59 L Respiratory Rate 20 20 Blood Pressure 116/73 117/78 Pulse Oximetry 99 100 Oxygen Delivery Intake/Output Intake/Output: Intake & Output 11/04/25 11/05/25 11/06/25 11/07/25 23:59 23:59 23:59 23:59 Intake Total 2682.6 Balance 2682.6 Meds/Results Medications: Active Medications Generic Name Dose Route Start Last Admin Trade Name Freq PRN Reason Stop Dose Admin Acetaminophen 650 mg 11/06/25 09:46 Acetaminophen 325 Mg Tablet PO Q4H PRN Mild Pain (1-3) or Fever Chlordiazepoxide HCl 25 mg 11/06/25 11:32 Chlordiazepoxide (*Crx) 25 Mg Capsule PO Q6HR PRN Alcohol Withdrawal Hydromorphone HCl 1 mg 11/06/25 11:21 11/06/25 22:51 Hydromorphone Hcl Inj (*Crx) 1 Mg/Ml Syr IV PUSH 1 mg Q3H PRN Administration Pain Rated 7-10 Lactated Ringer's 1,000 mls @ 150 mls/hr 11/06/25 09:50 11/06/25 22:52 Lr - Lactated Ringers Iv IV CONT 125 mls/hr .Q6H40M ANDREA Administration Ondansetron HCl 4 mg 11/06/25 09:46 11/07/25 00:50 Ondansetron Inj 4 Mg/2 Ml Vial IV PUSH 4 mg Q4H PRN Administration Nausea Pantoprazole Sodium 40 mg 11/07/25 09:00 Pantoprazole Sodium Iv 40 Mg Vial IV PUSH QAM [facility] Radiology Results: ITS Impressions Chest X-Ray 11/06/25 07:15 IMPRESSION: 1. No acute cardiopulmonary findings given portable technique. Abdomen/Pelvis CT 11/06/25 08:09 IMPRESSION: 1. Ill-defined 2 cm lesion within pancreatic head. Malignancy not excluded. Recommend MRI and/or endoscopic ultrasound. 2. No acute abnormality. A MRCP 11/07/25 09:15 IMPRESSION: 1. A 1.7 x 1.4 x 1.4 cm mildly complex cystic lesion in the uncinate portion of the pancreas. Differential considerations included cystic neoplasm such as intraductal papillary mucinous neoplasm (IPMN), pseudocyst associated with pancreatitis given history provided, intrapancreatic choledochocyst/choledochocele or unusual presentation of Caroli's disease. Close interval surveillance recommended if patient is managed conservatively; repeat a bdominal MRI examination in 3 months or sooner if clinically appropriate. 2. Normal appearance of the MRCP. Although no clear communication between the cystic lesion/mass in the pancreatic uncinate region, ductal origin is possible and ERCP may provide additional beneficial information. Labs Labs: Laboratory Results - last 24 hr 11/06/25 11/07/25 06:19 05:58 WBC 9.9 RBC 4.07 L Hgb 13.9 L Hct 39.3 L MCV 96.6 MCH 34.2 H MCHC 35.4 RDW 12.3 Plt Count 193 MPV 9.6 Immature Gran % (Auto) 0.5 Neut % (Auto) 73.3 H Lymph % (Auto) 13.0 L [place] % (Auto) 12.0 H Eos % (Auto) 0.8 Baso % (Auto) 0.4 Lymph # (Auto) 1.29 [place] # (Auto) 1.2 H Eos # (Auto) 0.1 Baso # (Auto) 0.0 Abs Immat Gran (auto) 0.05 H Absolute Neuts (auto) 7.2 H Absolute Nucleated RBC 0.000 Nucleated RBC % 0.0 Sodium 130 L Potassium 3.8 Chloride 98 Carbon Dioxide 25 Anion Gap 7 BUN < 2 L Creatinine 0.52 L Estim Creat Clear Calc 135 Estimated GFR > 60 Glucose 80 Calcium 8.9 Magnesium 1.7 Total Bilirubin 0.9 AST 37 ALT 22 Alkaline Phosphatase 109 C-Reactive Protein < 0.5 Total Protein 6.8 Albumin 4.0 Triglycerides 213 H 124 Cholesterol 194 158 LDL Cholesterol Direct 96 86 HDL Direct 49 39 Attestation: I personally reviewed all lab results Quality VTE Prophylaxis VTE prophylaxis: mechanical ordered -Patient's previous records reviewed on admission -ER notes reviewed in detail on admission -discussed all findings and current treatment plan with patient/Family/POA -Consultations reviewed for recommendations -Patient's disposition for safe discharge discussed with dependency case manager -radiology imaging, EKG and test results I have personally reviewed and interpreted unless otherwise specified Dictation performed by [employer] direct speech recognition software, therefore tapper bit variants and typographical errors may occur. Hospitalist MIPS Advance Care Plan I have confirmed that the patient's Advanced Care Plan is present, code status is documented, or surrogate decision maker is listed in patient medical record.: Yes Medication Reconciliation I have utilized all available resources to obtain, update and review the patients current medications (includes all prescriptions, OTC, herbals, cannabis, and nutritional supplements).: Yes The patient is not eligible for med reconciliation; the patient is in a emergent medical situation where delaying treatment would jeopardize the patients health.: No
[2025-11-07 09:50] LABS: Lipase 704 U/L (23-300)
[2025-11-07] MEDS: PANTOPRAZOLE SODIUM IV 40 MG VIAL IV PUSH (09:57)
[2025-11-07] MEDS: LACTATED RINGERS 1,000 ML 150 ML IV CONT ×3 (09:59→17:57)
[2025-11-07 11:11] VITALS: BMI 17.7
[2025-11-07] MEDS: HYDROcodone/acetaminophen (*CRX) 5-325 MG TABLET 1 TAB PO (12:22)
[2025-11-07 14:00] VITALS: BP 109/71; PULSE 63; RESP 18; TEMP 36.8; O2SAT 97
--- NOTE | 2025-11-07 16:13 | P.PNGI_ITS ---
Progress Note: A&P Assessment and Plan (1) Pancreatitis: Qualifiers: Acute pancreatitis complication: unspecified Chronicity: acute Pancreatitis type: alcohol induced Qualified Code(s): K85.20 - Alcohol induced acute pancreatitis without necrosis or infection Code(s): K85.90 - Acute pancreatitis without necrosis or infection, unspecified Status: Acute Assessment and Plan: clinically improved, crp normal probably from alcohol use, he understood that needs to quit altogether TG level ok will advance diet no need to repeat more lipase hopefully home tomorrow reviewed mrcp- pancreatic lesion could be pseudocyst from pancreatitis, other differential ipmn, etc we will refer to get EUS pancreas at another facility as outpatient in few more weeks (2) Transaminitis: Code(s): R74.01 - Elevation of levels of liver transaminase levels Status: Acute Assessment and Plan: trending down (3) Pancreatic lesion: Code(s): K86.9 - Disease of pancreas, unspecified Status: Acute (4) Epigastric pain: Code(s): R10.13 - Epigastric pain Status: Acute Assessment and Plan: resolved (5) Alcohol abuse: Code(s): F10.10 - Alcohol abuse, uncomplicated Status: Acute Subjective Date/time seen: 11/07/25 16:13 Interval history: pain is almost gone, he is resting comfortable Review of Systems Review of Systems: All systems reviewed & are unremarkable except as noted in HPI and below Exam Const: General: comfortable and no acute distress HENMT: Face/Nose/Sinus: Normal nares present Eyes: General: appearance normal, both eyes and all related structures Neck: Neck: supple Resp: Auscultation: clear to auscultation bilaterally Cardio: Rate: regular rate Rhythm: regular rhythm GI: Inspection: non-distended GI Palp: Yes Soft to palpation and No Tenderness to palpation present (GI) Auscultation: normal bowel sounds Skin: General skin exam: normal color Neuro: Speech: normal speech Extrem: General: normal to inspection Psych: Mental Status: mental status grossly normal Objective Data Vital Signs Vital Signs: Vital Signs - 24 hr 11/06/25 20:00 11/06/25 21:58 11/07/25 06:00 Temperature 98.1 F 98.2 F Pulse Rate 66 59 L Respiratory Rate 20 20 Blood Pressure 116/73 117/78 Pulse Oximetry 99 100 Oxygen Delivery Room Air 11/07/25 08:00 11/07/25 08:00 11/07/25 14:00 Temperature 98.3 F Pulse Rate 63 Respiratory Rate 18 Blood Pressure 117/78 109/71 Pulse Oximetry 97 Oxygen Delivery Room Air Intake/Output Intake/Output: Intake & Output 11/04/25 11/05/25 11/06/25 11/07/25 23:59 23:59 23:59 23:59 Intake Total 2682.6 1473 Balance 2682.6 1473 Meds/Results Medications: Active Medications Generic Name Dose Route Start Last Admin Trade Name Freq PRN Reason Stop Dose Admin Acetaminophen 650 mg 11/06/25 09:46 Acetaminophen 325 Mg Tablet PO Q4H PRN Mild Pain (1-3) or Fever Hydrocodone Bitart/Acetaminophen 1 tab 11/07/25 12:14 11/07/25 12:22 Hydrocodone/Acetaminophen (*Crx) 5-325 Mg Tablet PO 1 tab Q6H PRN Administration Pain Rated 4-6 Chlordiazepoxide HCl 25 mg 11/06/25 11:32 Chlordiazepoxide (*Crx) 25 Mg Capsule PO Q6HR PRN Alcohol Withdrawal Hydromorphone HCl 1 mg 11/06/25 11:21 11/06/25 22:51 Hydromorphone Hcl Inj (*Crx) 1 Mg/Ml Syr IV PUSH 1 mg Q3H PRN Administration Pain Rated 7-10 Lactated Ringer's 1,000 mls @ 150 mls/hr 11/06/25 09:50 11/07/25 12:21 Lr - Lactated Ringers Iv IV CONT 150 mls/hr .Q6H40M ANDREA Administration Ondansetron HCl 4 mg 11/06/25 09:46 11/07/25 00:50 Ondansetron Inj 4 Mg/2 Ml Vial IV PUSH 4 mg Q4H PRN Administration Nausea Pantoprazole Sodium 40 mg 11/07/25 09:00 11/07/25 09:57 Pantoprazole Sodium Iv 40 Mg Vial IV PUSH 40 mg QAM ANDREA Administration Radiology Results: ITS Impressions Chest X-Ray 11/06/25 07:15 IMPRESSION: 1. No acute cardiopulmonary findings given portable technique. Abdomen/Pelvis CT 11/06/25 08:09 IMPRESSION: 1. Ill-defined 2 cm lesion within pancreatic head. Malignancy not excluded. Recommend MRI and/or endoscopic ultrasound. 2. No acute abnormality. A MRCP 11/07/25 09:15 IMPRESSION: 1. A 1.7 x 1.4 x 1.4 cm mildly complex cystic lesion in the uncinate portion of the pancreas. Differential considerations included cystic neoplasm such as int raductal papillary mucinous neoplasm (IPMN), pseudocyst associated with pancreatitis given history provided, intrapancreatic choledochocyst/choledochocele or unusual presentation of Caroli's disease. Close interval surveillance recommended if patient is managed conservatively; repeat abdominal MRI examination in 3 months or sooner if clinically appropriate. 2. Normal appearance of the MRCP. Although no clear communication between the cystic lesion/mass in the pancreatic uncinate region, ductal origin is possible and ERCP may provide additional beneficial information. Labs Labs: Laboratory Results - last 24 hr 11/07/25 05:58 WBC 9.9 RBC 4.07 L Hgb 13.9 L Hct 39.3 L MCV 96.6 MCH 34.2 H MCHC 35.4 RDW 12.3 Plt Count 193 MPV 9.6 Immature Gran % (Auto) 0.5 Neut % (Auto) 73.3 H Lymph % (Auto) 13.0 L [place] % (Auto) 12.0 H Eos % (Auto) 0.8 Baso % (Auto) 0.4 Lymph # (Auto) 1.29 [place] # (Auto) 1.2 H Eos # (Auto) 0.1 Baso # (Auto) 0.0 Abs Immat Gran (auto) 0.05 H Absolute Neuts (auto) 7.2 H Absolute Nucleated RBC 0.000 Nucleated RBC % 0.0 Sodium 130 L Potassium 3.8 Chloride 98 Carbon Dioxide 25 Anion Gap 7 BUN < 2 L Creatinine 0.52 L Estim Creat Clear Calc 135 Estimated GFR > 60 Glucose 80 Calcium 8.9 Magnesium 1.7 Total Bilirubin 0.9 AST 37 ALT 22 Alkaline Phosphatase 109 C-Reactive Protein < 0.5 Total Protein 6.8 Albumin 4.0 Triglycerides 124 Cholesterol 158 LDL Cholesterol Direct 86 HDL Direct 39 Lipase 704 H
[2025-11-07 20:37] VITALS: BP 127/78; PULSE 79; RESP 16; TEMP 37.2; O2SAT 100
[2025-11-08] MEDS: LACTATED RINGERS 1,000 ML 150 ML IV CONT (00:17)
[2025-11-08] MEDS: HYDROcodone/acetaminophen (*CRX) 5-325 MG TABLET 1 TAB PO (00:18)
[2025-11-08 05:44] VITALS: BP 114/80; PULSE 64; RESP 16; TEMP 36.3; O2SAT 100
--- NOTE | 2025-11-08 06:51 | PC.NURSE ---
patient fluids infused, patient asked to stop fluids. LR stopped at this time per patient request. Patient noted to be drinking and eating with no c/o vomiting or nausea
[2025-11-08 08:00] VITALS: BP 114/80
[2025-11-08] MEDS: PANTOPRAZOLE SODIUM IV 40 MG VIAL IV PUSH (08:30)
[2025-11-08 08:37] LABS: Hematocrit 39.2 % (42.0-52.0); Hemoglobin 14.2 g/dL (14.0-18.0); Immature Granulocyte Percent A 0.3 % (0-0.5); Lymphocytes Absolute Auto 1.27 K/mm3 (0.9-3.2); Mean Corpuscular HGB Conc 36.2 g/dl (32-36); Mean Corpuscular Hemoglobin 34.5 pg (26-34); Mean Corpuscular Volume 95.1 fl (80-100); Nucleated Red Blood Cells Absolute Auto 0.000 K/mm3 (0.0-0.012); Nucleated Red Blood Cells Perc 0.0 % (0.0-0.2); Platelet Count Result 201 k/mm3 (150-375); Red Blood Count 4.12 M/mm3 (4.6-6.20); White Blood Count 6.2 K/mm3 (4.5-10.0)
[2025-11-08 09:02] LABS: Alanine Aminotransferase 17 U/L (6-50); Albumin Level 3.7 g/dL (3.5-5.1); Alkaline Phosphatase 96 U/L (38-126); Anion Gap 5 mmol/L (4-12); Aspartate Amino Transferase 29 U/L (17-59); Bilirubin,Total 0.6 mg/dL (0.2-1.3); Calcium 9.1 mg/dL (8.4-10.2); Carbon Dioxide 30 mmol/L (22-30); Chloride 97 mmol/L (98-107); Estimated CRCL calculation 138 ml/min; Estimated Glomerular Filt Rate > 60; Glucose 84 mg/dL (65-110); Magnesium 1.5 mg/dL (1.6-2.3); Potassium 3.0 mmol/L (3.4-5.0); Sodium 132 mmol/L (137-145); Total Protein 6.5 g/dL (6.3-8.2)
[2025-11-08 09:05] LABS: Blood Urea Nitrogen < 2 mg/dL (9-20)
--- NOTE | 2025-11-08 14:28 | P.DS_ITS ---
DS: Admitting Diagnosis Discharge Date 11/08/25 Admitting Diagnosis Pancreatitis alcohol abuse cyclical vomiting dehydration with hyponatremia leukocytosis pancreatic lesion DS: Discharge Diagnosis Discharge Diagnosis (1) Pancreatitis: Qualifiers: Acute pancreatitis complication: unspecified Chronicity: acute Pancreatitis type: alcohol induced Qualified Code(s): K85.20 - Alcohol induced acute pancreatitis without necrosis or infection Code(s): K85.90 - Acute pancreatitis without necrosis or infection, unspecified Status: Acute (2) Alcohol abuse: Code(s): F10.10 - Alcohol abuse, uncomplicated Status: Acute (3) Cyclical vomiting: Code(s): R11.15 - Cyclical vomiting syndrome unrelated to migraine Status: Acute (4) Dehydration with hyponatremia: Code(s): E86.0 - Dehydration; E87.1 - Hypo-osmolality and hyponatremia Status: Acute (5) Leukocytosis: Code(s): D72.829 - Elevated white blood cell count, unspecified Status: Resolved (6) Pancreatic lesion: Code(s): K86.9 - Disease of pancreas, unspecified Status: Acute DS: Summary Hospital Course Reason for hospitalization: nausea, vomiting, abdominal pain Hospital Course: The patient is a 30-year-old male with a history of alcohol abuse, recurrent pancreatitis, cyclical vomiting, and cannabis use, who was admitted with a one- week history of worsening epigastric abdominal pain radiating to the back, associated with persistent nausea and vomiting. He reported a significant reduction in alcohol intake over the past several months, with his last drink on , and ongoing cannabis use. On admission, he was afebrile and hemodynamically stable but had moderate to severe epigastric tenderness. Laboratory evaluation revealed marked elevation in lipase (>5000), mild hyponatremia, hypokalemia, mild transaminitis, elevated alkaline phosphatase, a nd leukocytosis. CT abdomen demonstrated a 2 cm ill-defined hypodense lesion in the pancreatic head, raising concern for pseudocyst, neoplasm, or other pancreatic pathology. MRCP further characterized this as a mildly complex cystic lesion (1.7 x 1.4 x 1.4 cm) in the uncinate process, with differential including pseudocyst, IPMN, or less likely, neoplasm; no biliary or pancreatic ductal dilation was seen. The patient was managed with aggressive intravenous fluids, electrolyte repletion, NPO status initially, and IV hydromorphone for pain control. He was transitioned to a low-fat diet as symptoms improved and tolerated oral intake without recurrence of pain or vomiting. GI was consulted and recommended outpatient endoscopic ultrasound (EUS) for further evaluation of the pancreatic lesion, as well as close interval imaging follow-up. Supportive care included thiamine, folic acid, multivitamin, and pantoprazole. He was counseled extensively on the need for complete abstinence from alcohol and cannabis to prevent further episodes of pancreatitis. His leukocytosis and transaminitis resolved during hospitalization, and his electrolytes were corrected. By discharge, he was pain-free, tolerating a low-fat diet, and ambulating independently. He was discharged home in stable condition with instructions for strict alcohol and cannabis abstinence, outpatient GI follow-up for EUS and repeat imaging, and close follow-up with his primary care provider. Time Spent with Patient Time attestation: Total time spent providing and/or coordinating discharge services:35 Minutes Exam Const: General: no acute distress HENMT: Face/Nose/Sinus: Normal nares present Mouth: Yes moist mucous membranes Eyes: General: appearance normal, both eyes and all related structures Neck: Neck: supple Resp: Effort & Inspection: normal respiratory effort Auscultation: clear to auscultation bilaterally Cardio: Rate: regular rate Rhythm: regular rhythm GI: Auscultation: normal bowel sounds Skin: General skin exam: normal color and no rashes or lesions noted Wounds: no wounds Neuro: General: gait normal Speech: normal speech Motor exam (neuro): 5/5 motor strength present throughout Sensory Exam: normal sensation Extrem: General: normal to inspection Psych: Mental Status: mental status grossly normal Affect: normal affect DS: Data Data Completed and Pending Labs on day of discharge: Labs from last 24 hours 11/08/25 07:57 WBC 6.2 RBC 4.12 L Hgb 14.2 Hct 39.2 L MCV 95.1 MCH 34.5 H MCHC 36.2 H RDW 12.6 Plt Count 201 MPV 9.8 Immature Gran % (Auto) 0.3 Neut % (Auto) 59.8 Lymph % (Auto) 20.5 [place] % (Auto) 16.3 H Eos % (Auto) 2.3 Baso % (Auto) 0.8 Lymph # (Auto) 1.27 [place] # (Auto) 1.0 H Eos # (Auto) 0.1 Baso # (Auto) 0.1 Abs Immat Gran (auto) 0.02 Absolute Neuts (auto) 3.7 Absolute Nucleated RBC 0.000 Nucleated RBC % 0.0 Sodium 132 L Potassium 3.0 L Chloride 97 L Carbon Dioxide 30 Anion Gap 5 BUN < 2 L Creatinine 0.51 L Estim Creat Clear Calc 138 Estimated GFR > 60 Glucose 84 Calcium 9.1 Magnesium 1.5 L Total Bilirubin 0.6 AST 29 ALT 17 Alkaline Phosphatase 96 Total Protein 6.5 Albumin 3.7 Imaging Radiologist's impression: Ordering Physician: Albert Wheat DO Date of Service: 11/06/25 Procedure(s): XR chest 1V portable Accession Number(s): [id number] cc: Albert Wheat DO; Esther Pedersen MD~ Examination: XR chest 1V portable Clinical History: abdominal pain Comparison: X-rays 08/29/2017 Technique: Portable AP Findings: Heart size normal. Lungs clear. No acute bony abnormality. IMPRESSION: 1. No acute cardiopulmonary findings given portable technique. Reviewed, dictated and finalized at location R. ING MACHINE OPERATOR HELPER Ordering Physician: Esther Pedersen MD Date of Service: 11/06/25 Procedure(s): CT abdomen pelvis w con Accession Number(s): [id number] cc: Esther Pedersen MD~ CT abdomen pelvis w con Clinical History: upper abdominal pain . Comparison: 08/20/2025 Technique: Axial images lung bases to symphysis pubis IV contrast information not listed in PACS Coronal, sagittal reformats CT images acquired with automatic exposure control for dose reduction DLP: 211 mGy-cm Findings: Lung bases: Clear. Visualized heart and pericardium: Unremarkable. Liver: Steatosis. Gallbladder: Unremarkable. Spleen: Unremarkable. Pancreas: Ill-defined hypodense lesion roughly 2 cm. Adrenal glands: Unremarkable. Kidneys: Right kidney- No hydronephrosis. No renal stones. Left kidney- No hydronephrosis. No renal stones. Distal esophagus/stomach: Unremarkable. Small bowel loops: Normal caliber and wall thickness. Colon: Normal caliber and wall thickness. Normal RLQ appendix. Nodes: No enlarged nodes. Peritoneum: No ascites. No free air. Mild ill-defined fluid or inflammation pancreaticoduodenal groove. Urinary bladder: Unremarkable. Prostate: Unremarkable. Bones: No acute bony abnormality. Soft tissues: Unremarkable. Aorta: No aneurysm or dissection. IVC: Unremarkable. Main portal vein/SMV/splenic vein: Patent. IMPRESSION: 1. Ill-defined 2 cm lesion within pancreatic head. Malignancy not excluded. Recommend MRI and/or endoscopic ultrasound. 2. No acute abnormality. A Reviewed, dictated and finalized at location R. ING MACHINE OPERATOR HELPER Ordering Physician: Kim Lizarraga APRN Date of Service: 11/07/25 Procedure(s): MR MRCP wo/w con/w 3D wo ind Accession Number(s): [id number] cc: Kim Lizarraga APRN; SOCIAL WORK THERAPIST PHYSICIAN; Erin Valadez MD~ EXAMINATION: MR MRCP wo/w con/w 3D wo ind DATE: 11/07/2025 09:03 INDICATION: 2 cm pancreatic lesion and pancreatitis TECHNIQUE: Magnetic resonance imaging (MRI) of the abdomen was performed with and without intravenous contrast. Sequences included coronal T2-weighted FS FSE, coronal T2-weighted FSE, axial T1-weighted LAVA, coronal FS FIESTA, axial dual- echo T1-weighted SPGR, coronal lava-FLEX, sagittal T2-weighted FSE, axial T2- weighted FSE, and axial DWI. Thick-slab T2-weighted FSE images were obtained for magnetic resonance cholangiopancreatography (MRCP). Maximum intensity projection 3-D reconstructions of the volumetric data were created by the technologist. Postcontrast sequences included coronal LAVA-flex and time course of axial T1- weighted LAVA. COMPARISON: CT exam from November 06, 2025 FINDINGS: ABDOMEN MRI: In the pancreatic uncinate region, a 1.7 x 1.4 x 1.4 cm mildly complex fluid intense lesion or mass is present as seen on image 27 series 6, image 16 series 9, and image 10 series 2. The lesion enhances along the peripheral margin but internally, the lesion has a mildly complex cystic appearance. On images 22 through 29 of series 16, the lesion has tubular appearing component extending cephalad but not clearly communicating with the pancreatic or biliary ducts. The pancreatic duct appears normal. The remainder the pancreas appears normal. The remainder of the solid organs, bones and vascular structures appear normal for technique. ABDOMEN MRCP: On the MRCP sequences, gallbladder appears normal as do the biliary ducts. Common bile duct measures up to 5 mm IMPRESSION: 1. A 1.7 x 1.4 x 1.4 cm mildly complex cystic lesion in the uncinate portion of the pancreas. Differential considerations included cystic neoplasm such as intraductal papillary mucinous neoplasm (IPMN), pseudocyst associated with pancreatitis given history provided, intrapancreatic choledochoc yst/choledochocele or unusual presentation of Caroli's disease. Close interval surveillance recommended if patient is managed conservatively; repeat abdominal MRI examination in 3 months or sooner if clinically appropriate. 2. Normal appearance of the MRCP. Although no clear communication between the cystic lesion/mass in the pancreatic uncinate region, ductal origin is possible and ERCP may provide additional beneficial information. Reviewed, dictated and finalized at location A. ING MACHINE OPERATOR HELPER Discharge Plan Discharge Attending physician on discharge: Alan Guerra Consulting providers: Richard Gray; Sravani Rivas; Jb Khan; Kim Lizarraga; Tan Luna; Davian Canales; Tre Vo Discharging Clinician: Angelica Rouse Patient Disposition: Home Activity: as tolerated Diet: low fat Discharge Instructions: Please abstain from drinking alcohol in any amount. Please abstain from cannabis use in any amount. Please call GI given to you by Dr. Crockett to get further testing on the pancreatic lesion seen on your imaging this admission. Patient Instructions: Antibiotic Form, Potassium Chloride (By mouth), Pancreatitis (DC) Patient Language: Cymraes Stand Alone Forms: General Discharge Information Follow-up/Referrals: PHYSICIAN,SOCIAL WORK THERAPIST [Primary Care Provider, Internal Medicine] Referral Note: call your PCP for an appointment to be seen within 1-2 weeks of discharge. Jb Crow MD [Physician, Gastroenterology] Referral Note: Please call for information on GI at another facility to get further testing done on the pancreatic lesion that was identified during this admission. Discharge Medications: New potassium chloride 10 mEq capsule, extended release 10 meq PO DAILY Qty: 5 0RF Continued folic acid 1 mg Tablet 1 mg PO DAILY Qty: 30 0RF multivitamin with folic acid [Thera] 400 mcg Tablet 1 tablet PO QAM Qty: 30 0RF ondansetron 4 mg tablet,disintegrating 4 mg PO Q8H PRN (Reason: nausea and vomiting) Qty: 12 0RF thiamine HCl (vitamin B1) [Vitamin B-1] 100 mg Tablet 100 mg PO QAM Qty: 30 0RF pantoprazole 40 mg tablet,delayed release (DR/EC) 40 mg PO QAM 28 Days Qty: 28 0RF metoclopramide HCl 10 mg tablet 10 mg PO Q6H PRN (Reason: nausea and vomiting) Qty: 30 0RF Discontinued potassium chloride [K-Tab] 20 mEq tablet extended release 20 meq PO DAILY Qty: 7 0RF Date of admission: 11/06/25 09:46 Primary Care Provider: PHYSICIAN,SOCIAL WORK THERAPIST Admitting Provider: Erin Valadez Attending physician on admission: Erin Valadez Condition: Stable Quality VTE Prophylaxis VTE prophylaxis: mechanical ordered
--- NOTE | 2025-11-08 17:09 | WPDGIPROGNO ---
Progress Note: A&P Assessment and Plan (1) Pancreatitis: Qualifiers: Acute pancreatitis complication: unspecified Chronicity: acute Pancreatitis type: alcohol induced Qualified Code(s): K85.20 - Alcohol induced acute pancreatitis without necrosis or infection Code(s): K85.90 - Acute pancreatitis without necrosis or infection, unspecified Status: Acute Assessment and Plan: no more pain and tolerating diet probably from alcohol use, he understood that needs to quit altogether reviewed mrcp- pancreatic lesion could be pseudocyst from pancreatitis, other differential ipmn, etc we will refer to get EUS pancreas at another facility as outpatient in few more weeks (2) Transaminitis: Code(s): R74.01 - Elevation of levels of liver transaminase levels Status: Acute Assessment and Plan: trending down (3) Pancreatic lesion: Code(s): K86.9 - Disease of pancreas, unspecified Status: Acute Assessment and Plan: eus as outpatient (4) Epigastric pain: Code(s): R10.13 - Epigastric pain Status: Acute Assessment and Plan: resolved (5) Alcohol abuse: Code(s): F10.10 - Alcohol abuse, uncomplicated Status: Acute Subjective Date/time seen: 11/08/25 11:09 Interval history: no more pain, ready to go home Review of Systems Review of Systems: All systems reviewed & are unremarkable except as noted in HPI and below Exam Const: General: comfortable and no acute distress HENMT: Face/Nose/Sinus: Normal nares present Eyes: General: appearance normal, both eyes and all related structures Neck: Neck: no JVD Resp: Auscultation: clear to auscultation bilaterally Cardio: Rate: regular rate Rhythm: regular rhythm GI: Inspection: non-distended GI Palp: Yes Soft to palpation Skin: General skin exam: normal color Neuro: Speech: normal speech Extrem: General: normal to inspection Psych: Mental Status: mental status grossly normal Objective Data Vital Signs Vital Signs: Vital Signs - 24 hr 11/07/25 20:37 11/08/25 05:44 11/08/25 08:00 Temperature 98.9 F 97.3 F L Pulse Rate 79 64 Respiratory Rate 16 16 Blood Pressure 127/78 114/80 114/80 Pulse Oximetry 100 100 Oxygen Delivery 11/08/25 08:00 Temperature Pulse Rate Respiratory Rate Blood Pressure Pulse Oximetry Oxygen Delivery Room Air Intake/Output Intake/Output: Intake & Output 11/05/25 11/06/25 11/07/25 11/08/25 23:59 23:59 23:59 23:59 Intake Total 2682.6 2553 2572.5 Balance 2682.6 2553 2572.5 Meds/Results Radiology Results: ITS Impressions Chest X-Ray 11/06/25 07:15 IMPRESSION: 1. No acute cardiopulmonary findings given portable technique. Abdomen/Pelvis CT 11/06/25 08:09 IMPRESSION: 1. Ill-defined 2 cm lesion within pancreatic head. Malignancy not excluded. Recommend MRI and/or endoscopic ultrasound. 2. No acute abnormality. A MRCP 11/07/25 09:15 IMPRESSION: 1. A 1.7 x 1.4 x 1.4 cm mildly complex cystic lesion in the uncinate portion of the pancreas. Differential considerations included cystic neoplasm such as intraductal papillary mucinous neoplasm (IPMN), pseudocyst associated with pancreatitis given history provided, intrapancreatic choledochocyst/choledochocele or unusual presentation of Caroli's disease. Close interval surveillance recommended if patient is managed conservatively; repeat abdominal MRI examination in 3 months or sooner if clinically appropriate. 2. Normal appearance of the MRCP. Although no clear communication between the cystic lesion/mass in the pancreatic uncinate region, ductal origin is possible and ERCP may provide additional beneficial information. Labs Labs: Laboratory Results - last 24 hr 11/08/25 07:57 WBC 6.2 RBC 4.12 L Hgb 14.2 Hct 39.2 L MCV 95.1 MCH 34.5 H MCHC 36.2 H RDW 12.6 Plt Count 201 MPV 9.8 Immature Gran % (Auto) 0.3 Neut % (Auto) 59.8 Lymph % (Auto) 20.5 [place] % (Auto) 16.3 H Eos % (Auto) 2.3 Baso % (Auto) 0.8 Lymph # (Auto) 1.27 [place] # (Auto) 1.0 H Eos # (Auto) 0.1 Baso # (Auto) 0.1 Abs Immat Gran (auto) 0.02 Absolute Neuts (auto) 3.7 Absolute Nucleated RBC 0.000 Nucleated RBC % 0.0 Sodium 132 L Potassium 3.0 L Chloride 97 L Carbon Dioxide 30 Anion Gap 5 BUN < 2 L Creatinine 0.51 L Estim Creat Clear Calc 138 Estimated GFR > 60 Glucose 84 Calcium 9.1 Magnesium 1.5 L Total Bilirubin 0.6 AST 29 ALT 17 Alkaline Phosphatase 96 Total Protein 6.5 Albumin 3.7
== END 2025-11-08 14:02 | disposition home or self-care (01) | DRG 282 ==
LOC: ANHED 09:51 → ANH3MEDSUR 10:19
PROVIDERS: Nurse Practitioner; Nurse Practitioner Family; Student in an Organized Health Care Education/Training Program; Admitting Provider Internal Medicine; Emergency Provider General Practice; Visit Provider Internal Medicine
DX: K85.20 Alcohol induced acute pancreatitis without necrosis or infection (principal); K76.0 Fatty (change of) liver, not elsewhere classified; R11.15 Cyclical vomiting syndrome unrelated to migraine; E86.0 Dehydration; K86.9 Disease of pancreas, unspecified; E87.1 Hypo-osmolality and hyponatremia; E87.6 Hypokalemia; F10.10 Alcohol abuse, uncomplicated; F17.290 Nicotine dependence, other tobacco product, uncomplicated; F12.90 Cannabis use, unspecified, uncomplicated
CPT/HCPCS: 36415; 71045; 74177; 74183; 76376; 80053; 80061; 80307; 81001; 82077; 83605; 83690; 83735; 85025; 86140; 93005; 96361; 96374; 96375; 99285; A9270; A9577; J1171; J2270; J2405; J2470; J7030; J7120; Q9967